=== PATIENT | female | born 1945 | race Caucasian/White ===

== ENCOUNTER → 2016-09-21 | Outpatient (CLI) | payer OTHER ==
[~2016-09-21] MED LIST: ATOR-22 PO; BUSP5TAB59 PO; FURO-85 PO; LORA-741 PO; LSN5 PO; MAGNSUS5 PO; [UNRECOGNIZED DRUG - CODE]; acetaminophen PO; celexa PO; oxybutynin PO
[2016-09-21 09:13] LABS: HEMATOCRIT 40.2 % (37-47); MEAN CELL VOLUME 90.1 fL (80-100); MEAN CORPUSCULAR HEMOGLOBIN 29.4 pg (25-34); MEAN CORPUSCULAR HGB CONC 32.6 g/dl (32-36); MEAN PLATELET VOLUME 12.5 fL (7.4-10.4); PLATELET COUNT 143 K/uL (130-400); RED BLOOD COUNT 4.46 M/uL (4.2-5.4); WHITE BLOOD COUNT 23.92 K/uL (4.8-10.8)
[2016-09-21 09:20] LABS: ALT/SGPT 21 U/L (12-78); BLOOD UREA NITROGEN 22 mg/dl (7-18); BUN/CREATININE RATIO 25.3 (10-20); CALCIUM 8.2 mg/dl (8.5-10.1); CARBON DIOXIDE 25 mmol/L (21-32); CHLORIDE 108 mmol/L (98-107); CHOLESTEROL 138 mg/dl (0-200); CREATININE 0.88 mg/dl (0.60-1.20); GLUCOSE 89 mg/dl (70-99); POTASSIUM 4.4 mmol/L (3.5-5.1); SODIUM 142 mmol/L (136-145)
[2016-09-21 09:30] LABS: ALB/GLOB RATIO 0.9 (0.9-2); ALKALINE PHOSPHATASE 89 U/L (45-117); AST/SGOT 16 U/L (15-37); CHOLESTEROL/HDL RATIO 1.8; HDL CHOLESTEROL 76 mg/dl; LDL CHOLESTEROL CALCULATED 50 mg/dl; TRIGLYCERIDES 61 mg/dl (0-150); VERY LOW DENSITY LIPOPROT CALC 12 mg/dl
[2016-09-21 09:54] LABS: BASO % 0.2 %; BASO ABS # 0.04 K/uL (0-0.2); COMPLETE YES; EOS % 0.8 %; IG% 0.2 %; LYMPH % 80.9 %; LYMPH ABS # 19.34 K/uL (1.2-3.4); MONO % 3.1 %; NEUT % 14.8 %; SMUDGE CELLS PRESENT
== END ==
LOC: C.LABUPBEA 09:05
PROVIDERS: ATTEND Family Medicine
DX: D64.9 Anemia, unspecified (principal); E03.9 Hypothyroidism, unspecified; I10 Essential (primary) hypertension; E78.5 Hyperlipidemia, unspecified

== ENCOUNTER → 2016-12-18 | Outpatient (CLI) | payer OTHER ==
[2016-12-18 10:15] LABS: HEMATOCRIT 44.3 % (37-47); MEAN CELL VOLUME 90.4 fL (80-100); MEAN CORPUSCULAR HEMOGLOBIN 28.2 pg (25-34); MEAN CORPUSCULAR HGB CONC 31.2 g/dl (32-36); MEAN PLATELET VOLUME 12.1 fL (7.4-10.4); PLATELET COUNT 161 K/uL (130-400); WHITE BLOOD COUNT 29.59 K/uL (4.8-10.8)
[2016-12-18 10:26] LABS: ALT/SGPT 25 U/L (12-78); BLOOD UREA NITROGEN 23 mg/dl (7-18); BUN/CREATININE RATIO 26.7 (10-20); CARBON DIOXIDE 26 mmol/L (21-32); CHLORIDE 106 mmol/L (98-107); CREATININE 0.86 mg/dl (0.60-1.20); GLUCOSE 87 mg/dl (70-99); POTASSIUM 4.1 mmol/L (3.5-5.1); SODIUM 142 mmol/L (136-145)
[2016-12-18 10:29] LABS: CALCIUM 9.2 mg/dl (8.5-10.1)
[2016-12-18 10:36] LABS: ALB/GLOB RATIO 1.1 (0.9-2); ALKALINE PHOSPHATASE 118 U/L (45-117); AST/SGOT 16 U/L (15-37)
[2016-12-18 10:49] LABS: ESTIMATED AVERAGE GLUCOSE 128 mg/dl; HA1C FLAG Normal (Normal)
[2016-12-18 11:45] LABS: BASO % 0.2 %; BASO ABS # 0.05 K/uL (0-0.2); COMPLETE YES; EOS % 0.9 %; IG% 0.2 %; LYMPH % 81.9 %; LYMPH ABS # 24.24 K/uL (1.2-3.4); MONO % 2.6 %; NEUT % 14.2 %; SMUDGE CELLS PRESENT
== END ==
LOC: C.LABUPBEA 09:13
PROVIDERS: ATTEND Family Medicine
DX: E11.9 Type 2 diabetes mellitus without complications (principal); R26.9 Unspecified abnormalities of gait and mobility

== ENCOUNTER → 2017-04-25 | Outpatient (CLI) | payer OTHER ==
[2017-04-25 10:09] LABS: ALT/SGPT 22 U/L (12-78); AST/SGOT 13 U/L (15-37); BLOOD UREA NITROGEN 18 mg/dl (7-18); BUN/CREATININE RATIO 21.2 (10-20); CALCIUM 8.7 mg/dl (8.5-10.1); CARBON DIOXIDE 28 mmol/L (21-32); CHLORIDE 108 mmol/L (98-107); CREATININE 0.85 mg/dl (0.60-1.20); GLUCOSE 93 mg/dl (70-99); POTASSIUM 4.3 mmol/L (3.5-5.1); SODIUM 142 mmol/L (136-145)
[2017-04-25 10:16] LABS: ALB/GLOB RATIO 0.9 (0.9-2); ALKALINE PHOSPHATASE 107 U/L (45-117)
[2017-04-25 10:24] LABS: HEMATOCRIT 39.5 % (37-47); MEAN CORPUSCULAR HEMOGLOBIN 28.2 pg (25-34); MEAN CORPUSCULAR HGB CONC 31.6 g/dl (32-36); RED BLOOD COUNT 4.44 M/uL (4.2-5.4); WHITE BLOOD COUNT 28.57 K/uL (4.8-10.8)
[2017-04-25 10:35] LABS: MEAN PLATELET VOLUME 12.6 fL (7.4-10.4); PLATELET COUNT 128 K/uL (130-400)
[2017-04-25 11:38] LABS: BASO % 0.1 %; BASO ABS # 0.04 K/uL (0-0.2); COMPLETE YES; ECHINOCYTES 1+; EOS % 0.7 %; IG% 0.1 %; LYMPH ABS # 23.14 K/uL (1.2-3.4); MONO % 3.4 %; NEUT % 14.7 %; SMUDGE CELLS PRESENT; VACUOLIZATION 1+
== END ==
LOC: C.LABUPBEA 09:29
PROVIDERS: ATTEND Nurse Practitioner Family
DX: I50.32 Chronic diastolic (congestive) heart failure (principal); E78.5 Hyperlipidemia, unspecified; E11.9 Type 2 diabetes mellitus without complications

== ENCOUNTER → 2017-05-27 | Outpatient (CLI) | payer OTHER ==
[2017-05-27 08:58] LABS: ALT/SGPT 21 U/L (12-78); BLOOD UREA NITROGEN 30 mg/dl (7-18); BUN/CREATININE RATIO 27.4 (10-20); CALCIUM 8.5 mg/dl (8.5-10.1); CARBON DIOXIDE 27 mmol/L (21-32); CHLORIDE 107 mmol/L (98-107); GLUCOSE 99 mg/dl (70-99); POTASSIUM 4.3 mmol/L (3.5-5.1); SODIUM 141 mmol/L (136-145)
[2017-05-27 09:09] LABS: ALKALINE PHOSPHATASE 108 U/L (45-117); AST/SGOT 16 U/L (15-37)
== END ==
LOC: C.LABUPBEA 08:00
PROVIDERS: ATTEND Nurse Practitioner Family
DX: E11.9 Type 2 diabetes mellitus without complications (principal); I50.32 Chronic diastolic (congestive) heart failure; R26.2 Difficulty in walking, not elsewhere classified

== ENCOUNTER → 2017-06-03 | Outpatient (CLI) | payer OTHER ==
[2017-06-03 08:26] LABS: BLOOD UREA NITROGEN 27 mg/dl (7-18); BUN/CREATININE RATIO 24.5 (10-20); CALCIUM 8.9 mg/dl (8.5-10.1); CARBON DIOXIDE 27 mmol/L (21-32); CHLORIDE 105 mmol/L (98-107); GLUCOSE 104 mg/dl (70-99); POTASSIUM 4.6 mmol/L (3.5-5.1); SODIUM 140 mmol/L (136-145)
== END ==
LOC: C.LABUPBEA 07:56
PROVIDERS: ATTEND Nurse Practitioner Family
DX: Z01.89 Encounter for other specified special examinations (principal)

== ENCOUNTER → 2017-07-03 | Outpatient (CLI) | payer OTHER ==
--- NOTE | 2017-07-03 15:27 | MAMMOGRAPHY REPORT ---
BILATERAL FIRST EVER DIGITAL SCREENING MAMMOGRAM WITH CAD: 07/03/2017 CLINICAL HISTORY: Routine screening. Baseline exam. TECHNIQUE: Bilateral CC and MLO views were obtained. Current study was also evaluated with a Comput er Aided Detection (CAD) system. COMPARISON: No prior exams were available for comparison. BREAST COMPOSITION: There are scattered areas of fibroglandular density in both breasts. FINDINGS: There is an incompletely imaged dense, partially circumscribed 2.6 cm mass projecting over the superior right pectoralis muscle on the MLO view, which could possibly represent an enlarged lym ph node. Additional targeted ultrasound of the right axilla is recommended for further characterizat ion. There are multiple bilateral circumscribed subcentimeter masses scattered in the breasts, which is a typically benign mammographic pattern. No other suspicious mass, architectural distortion or cluster of microcalcifications is seen bilaterally in the breasts. IMPRESSION: ACR BI-RADS CATEGORY 0: INCOMPLETE EVALUATION: NEED ADDITIONAL IMAGING EVALUATION The incompletely visualized partially circumscribed 2.6 cm mass in the right axillary region needs ad ditional evaluation. The patient will be called to schedule an appointment. Approximately 10% of breast cancers are not detected with mammography. A negative mammographic report should not delay biopsy if a clinically suggestive mass is present. Kaylen Kumar M.D. ay/:07/03/2017 14:55:23 Experimental Electronics Developer: Kelly BISWAS)(M), [facility] letter sent: Addl Imaging 0 BI-RADS Code: ACR BI-RADS Category 0: Incomplete Evaluation: Need Additional Imaging Evaluation
== END | disposition home or self-care (01) ==
LOC: C.MAMM 14:17
PROVIDERS: ATTEND Family Medicine
DX: Z12.31 Encounter for screening mammogram for malignant neoplasm of breast (principal); N63.31 Unspecified lump in axillary tail of the right breast

== ENCOUNTER → 2017-07-22 | Outpatient (CLI) | payer OTHER ==
--- NOTE | 2017-07-22 15:18 | MAMMOGRAPHY REPORT ---
ULTRASOUND OF RIGHT BREAST: 07/22/2017 CLINICAL HISTORY: 72-year-old woman called back from screening mammography for an incompletely visual ized partially circumscribed dense mass in the right axilla identified on the right MLO view. Review of the patient's records makes no mention of leukemia, lymphoma or autoimmune disorders. COMPARISON: Comparison is made to exam dated: 07/03/2017 mammogram - [facility]. FINDINGS: Targeted ultrasound was performed in the right axilla to assess for the incompletely visua lized mammographic mass, possibly representing lymphadenopathy. Numerous enlarged lymph nodes with t hickened and slightly heterogeneous cortices are identified, mostly within the middle and inferior ri ght axillary region. The largest lymph node measures 3.5 cm in length with cortical thickness measur ing up to 6.6 mm. For comparison purposes, the left axilla was also evaluated with ultrasound, and s imilar appearing enlarged lymph nodes within cortices are also seen in the left axilla. Differential considerations include infectious, inflammatory and neoplastic processes and definitive characteriza tion with ultrasound guided fine needle aspiration in the Radiology Department with pathologic assist ance is recommended. IMPRESSION: ACR BI-RADS CATEGORY 4: SUSPICIOUS - FOLLOW-UP RECOMMENDED Ultrasound-guided fine-needle aspiration in the Radiology Department with pathologic assistance is re commended for bilateral axillary lymphadenopathy. These results and recommendations were discussed with the patient and her aid at the time of the exam . Kaylen Kumar M.D. ay/:07/22/2017 14:42:28 Route Supervisor: Gila BISWAS)(Alok), [facility] letter sent: Abnormal 4/5 BI-RADS Code: ACR BI-RADS Category 4: Suspicious
== END | disposition home or self-care (01) ==
LOC: C.MAMM 13:55
PROVIDERS: ATTEND Family Medicine
DX: R92.8 Other abnormal and inconclusive findings on diagnostic imaging of breast (principal); N63.10 Unspecified lump in the right breast, unspecified quadrant; N64.89 Other specified disorders of breast

== ENCOUNTER → 2017-09-10 | Outpatient (CLI) | payer OTHER | LOC: C.LABUPBEA 08:54 | PROVIDERS: ATTEND Nurse Practitioner Family | DX: R26.2 Difficulty in walking, not elsewhere classified (principal) ==

== ENCOUNTER → 2017-10-18 | Outpatient (CLI) | payer OTHER ==
[2017-10-18 08:30] LABS: HEMATOCRIT 38.3 % (37-47); MEAN CELL VOLUME 89.5 fL (80-100); MEAN CORPUSCULAR HGB CONC 31.3 g/dl (32-36); MEAN PLATELET VOLUME 12.7 fL (7.4-10.4); PLATELET COUNT 144 K/uL (130-400); RED CELL DISTRIBUTION WIDTH CV 14.9 % (11.5-14.5); RED CELL DISTRIBUTION WIDTH SD 48.3 fL (36.4-46.3); WHITE BLOOD COUNT 25.09 K/uL (4.8-10.8)
[2017-10-18 08:38] LABS: ALBUMIN 3.1 gm/dl (3.4-5.0); ALT/SGPT 20 U/L (12-78); BLOOD UREA NITROGEN 28 mg/dl (7-18); CALCIUM 8.6 mg/dl (8.5-10.1); CARBON DIOXIDE 26 mmol/L (21-32); CREATININE 1.16 mg/dl (0.60-1.20); GLUCOSE 106 mg/dl (70-99); POTASSIUM 4.1 mmol/L (3.5-5.1); SODIUM 140 mmol/L (136-145)
[2017-10-18 08:41] LABS: ALKALINE PHOSPHATASE 98 U/L (45-117); AST/SGOT 13 U/L (15-37); TOTAL PROTEIN 6.3 gm/dl (6.4-8.2)
[2017-10-18 09:34] LABS: BASO % 0.2 %; BASO ABS # 0.05 K/uL (0-0.2); EOS % 0.8 %; EOS ABS # 0.19 K/uL (0-0.5); IG# 0.04 K/uL (0.00-0.02); LYMPH % 81.1 %; LYMPH ABS # 20.36 K/uL (1.2-3.4); MONO % 2.9 %; MONO ABS # 0.74 K/uL (0.11-0.59); NEUT % 14.8 %; NEUT ABS # 3.71 K/uL (1.4-6.5)
== END ==
LOC: C.LABUPBEA 07:51
PROVIDERS: ATTEND Nurse Practitioner Family
DX: I50.32 Chronic diastolic (congestive) heart failure (principal); E78.5 Hyperlipidemia, unspecified

== ENCOUNTER 2017-12-25 16:14 | Emergency (ER) | payer OTHER ==
[~2017-12-25] VITALS: Ht 162.6 cm; Wt 116.0 kg
[2017-12-25 16:22] VITALS: Ht 162.6 cm; Wt 116.0 kg
--- NOTE | 2017-12-25 16:29 | EMERGENCY ROOM VISIT NOTE ---
History Report prepared by Maribel: Fransisco Monteiro Under the Supervision of: Dr. Bethany Dill M.D. First contact with patient: 16:16 Chief Complaint: PSYCHIATRIC PROBLEMS Stated Complaint: MHID History of Present Illness The patient is a 72 year old female who presents to the Emergency Room via EMS from [facility] with a worsening need for a mental health evaluation today. Per the nursing staff, the patient was at a group therapy session today at the long-term, and the patient verbally stated that she would stab herself. The staff at the long-term were concerned because she is able to walk and knows where the knives are kept. She was then sent here for mental health evaluation. The patient states that she is not taken care of at [facility], and is upset that her son placed her there 4 to 5 years ago. She notes that she has to wait until "second" shift until she can eat, even if she is hungry. The patient admits to thoughts of hurting herself. She adds that she "hears things" early in the mornings, but she believes it is her roommate's TV. She denies any visual hallucinations. She states that her is at [facility] but they do not share a room. The patient denies any pains, vomiting, diarrhea, chest pain, shortness of breath, or headaches. She says that she is diabetic. She notes no history of heart attacks or strokes. The patient says that she has no homicidal ideations, and states that she has never tried to hurt herself in the past. Source of History: patient, nursing staff Onset: Today Position: other (global) Symptom Intensity: admits to suicidal thoughts Quality: other (need for mental health evaluation) Timing: worsening (need) Associated Symptoms: No headache, No chest pain, No SOB, No diarrhea Note: Associated symptoms: Some visual hallucinations. Denies any pains. Review of Systems See HPI for pertinent positives & negatives. A total of 10 systems reviewed and were otherwise negative. Past Medical & Surgical Medical Problems: (1) Diabetes (2) Seizure disorder Family History Patient reports no known family medical history. Social History Smoking Status: Never Smoker Alcohol Use: none Drug Use: none Housing Status: long-term Occupation Status: retired Current/Historical Medications Scheduled Atorvastatin (Lipitor), 1 TAB PO DAILY Cholecalciferol (Vitamin D3), 4,000 UNITS PO DAILY Diclofenac Sodium (Topical) (Voltaren 1% Top Gel), 1 GM TOP BID Donepezil Hydrochloride (Donepezil Hcl), 10 MG PO DAILY Furosemide (Lasix), 40 MG PO DAILY Lisinopril (Zestril), 5 MG PO DAILY Memantine (Namenda), 10 MG PO BID Oxybutynin Chloride (Oxybutynin Chloride Er), 5 MG PO DAILY Allergies Coded Allergies: Spinach (Unverified Allergy, Unknown, diarrhea, 12/25/17) Physical Exam Vital Signs Date Time Temp Pulse Resp B/P (MAP) Pulse Ox O2 Delivery O2 Flow Rate FiO2 12/25/17 21:17 75 16 115/76 98 12/25/17 19:56 70 16 135/76 98 Room Air 12/25/17 18:14 61 98 12/25/17 18:01 62 16 Room Air 150/61 12/25/17 17:14 100 12/25/17 17:04 58 12/25/17 17:04 36.8 60 18 160/58 97 Room Air 12/25/17 17:02 160/58 12/25/17 16:22 36.7 61 16 187/58 98 Room Air Physical Exam Vital signs reviewed. General: Obese, generally well-appearing 72 year old female, in no significant distress. HEENT: No scleral icterus, PERRLA, neck supple. Atraumatic. Cardiovascular: Regular rate and rhythm, no extra sounds. Pulmonary: Clear to auscultation bilaterally, normal work of breathing. Abdomen: Soft, nontender, nondistended, positive bowel sounds. Musculoskeletal: Atraumatic, no peripheral edema. Neurologic: Patient awake alert and oriented Skin: Warm, dry, no rash Psych: + SI but states she "wouldn't do it." She believes her needs her. No homicidal ideation. Medical Decision & Procedures Laboratory Results 12/25/17 16:47 Red Blood Count 4.87, Mean Corpuscular Volume 88.1, Mean Corpuscular Hemoglobin 27.9, Mean Corpuscular Hemoglobin Concent 31.7, Mean Platelet Volume 12.2, Neutrophils (%) (Auto) 11.4, Lymphocytes (%) (Auto) 85.6, Monocytes (%) (Auto) 2.1, Eosinophils (%) (Auto) 0.5, Basophils (%) (Auto) 0.2, Neutrophils # (Auto) 5.06, Lymphocytes # (Auto) 37.62, Monocytes # (Auto) 0.92, Eosinophils # (Auto) 0.20, Basophils # (Auto) 0.07 12/25/17 16:47 Test 12/25/17 16:47 12/25/17 18:30 White Blood Count 43.97 K/uL (4.8-10.8) Red Blood Count 4.87 M/uL (4.2-5.4) Hemoglobin 13.6 g/dL (12.0-16.0) Hematocrit 42.9 % (37-47) Mean Corpuscular Volume 88.1 fL (80-100) Mean Corpuscular Hemoglobin 27.9 pg (25-34) Mean Corpuscular Hemoglobin Concent 31.7 g/dl (32-36) Platelet Count 147 K/uL (130-400) Mean Platelet Volume 12.2 fL (7.4-10.4) Neutrophils (%) (Auto) 11.4 % Lymphocytes (%) (Auto) 85.6 % Monocytes (%) (Auto) 2.1 % Eosinophils (%) (Auto) 0.5 % Basophils (%) (Auto) 0.2 % Neutrophils # (Auto) 5.06 K/uL (1.4-6.5) Lymphocytes # (Auto) 37.62 K/uL (1.2-3.4) Monocytes # (Auto) 0.92 K/uL (0.11-0.59) Eosinophils # (Auto) 0.20 K/uL (0-0.5) Basophils # (Auto) 0.07 K/uL (0-0.2) RDW Standard Deviation 49.0 fL (36.4-46.3) RDW Coefficient of Variation 15.3 % (11.5-14.5) Immature Granulocyte % (Auto) 0.2 % Immature Granulocyte # (Auto) 0.10 K/uL (0.00-0.02) Smudge Cells PRESENT Anion Gap 5.0 mmol/L (3-11) Est Creatinine Clear Calc Drug Dose 47.8 ml/min Estimated GFR () 45.7 Estimated GFR (Non- 39.4 BUN/Creatinine Ratio 17.9 (10-20) Calcium Level 8.6 mg/dl (8.5-10.1) Magnesium Level 2.3 mg/dl (1.8-2.4) Total Bilirubin 0.3 mg/dl (0.2-1) Direct Bilirubin < 0.1 mg/dl (0-0.2) Aspartate Amino Transf (AST/SGOT) 18 U/L (15-37) Alanine Aminotransferase (ALT/SGPT) 25 U/L (12-78) Alkaline Phosphatase 132 U/L (45-117) Total Protein 7.4 gm/dl (6.4-8.2) Albumin 3.5 gm/dl (3.4-5.0) Thyroid Stimulating Hormone (TSH) 1.640 uIu/ml (0.300-4.500) Salicylates Level < 1.7 mg/dl (2.8-20) Acetaminophen Level < 2 ug/ml (10-30) Ethyl Alcohol mg/dL < 3.0 mg/dl (0-3) Urine Color YELLOW Urine Appearance CLEAR (CLEAR) Urine pH 7.5 (4.5-7.5) Urine Specific [place] 1.015 (1.000-1.030) Urine Protein NEG (NEG) Urine Glucose (UA) NEG (NEG) Urine Ketones NEG (NEG) Urine Occult Blood NEG (NEG) Urine Nitrite NEG (NEG) Urine Bilirubin NEG (NEG) Urine Urobilinogen NEG (NEG) Urine Leukocyte Esterase SMALL (NEG) Urine WBC (Auto) 10-30 /hpf (0-5) Urine RBC (Auto) 0-4 /hpf (0-4) Urine Hyaline Casts (Auto) 1-5 /lpf (0-5) Urine Epithelial Cells (Auto) >30 /lpf (0-5) Urine Bacteria (Auto) 2+ (NEG) Urine Renal Epithelial Cells 5-10 /lpf (0-5) Urine Opiates Screen NEG (NEG) Urine Methadone, Qualitative NEG (NEG) Urine Barbiturates NEG (NEG) Urine Phencyclidine (PCP) Level NEG (NEG) Ur Amphetamine/Methamphetamine NEG (NEG) MDMA (Ecstasy) Screen NEG (NEG) Urine Benzodiazepines Screen NEG (NEG) Urine Cocaine Metabolite NEG (NEG) Urine Marijuana (THC) NEG (NEG) Date/Time Source Procedure Growth Status 12/25/17 18:30 Urine,Catheterized Urine Culture - Final Escherichia Coli Complete Laboratory results per my review. ECG Per My Interpretation Indication: altered mental status Rate (beats per minute): 56 Rhythm: sinus bradycardia Findings: no acute ischemic change, no ectopy, other (QTC is 434) ED Course 1619: Past medical records reviewed. The patient was evaluated in room A6. A complete history and physical examination was performed. 2009: Upon reevaluation, the patient appeared to have improvement of her symptoms. I discussed findings with her. She verbalized agreement of the treatment plan. She was discharged back to her long-term. Medical Decision Differential diagnosis: Etiologies such as mood disorder, infection, hypoglycemia, electrolyte abnormalities, cardiac sources, intracerebral event, toxicologic, neurologic, as well as others were entertained. This patient was evaluated and appeared to be in no significant distress. The patient was medically evaluated and found to have a marked leukocytosis. In review of old records, the patient has a history of CLL. She is not anemic or thrombocytopenic however her WBC is rising. I do not think this is related to today's visit however she should likely be seen by her oncologist in the near future. The patient was medically cleared and evaluated by the psychiatric case preparer and liner. Patient admits to thoughts of self-harm however she has no intention. She states she needs to be available for her that she sees him about 4-5 hours a day. She has spoken with the construction area manager at the long-term about her issues with staff changes and her needs. The nursing staff was contacted at [facility]. They state she has recently been tapered off of her Celexa. Her agitation and frustration seems to have increased since that time. She will be discharged back to the nursing facility with recommendations to revisit SSRI therapy. Patient should also likely have a psychiatric evaluation or therapy appointment. She will return to the emergency department for worsening of symptoms or any medical concerns. Medication Reconcilliation Current Medication List: was personally reviewed by me Blood Pressure Screening Patient's blood pressure: Elevated blood pressure Blood pressure disposition: Elevated BP felt to be situational Impression Primary Impression: Suicidal thoughts Additional Impression: CLL (chronic lymphocytic leukemia) Scribe Attestation The scribe's documentation has been prepared under my direction and personally reviewed by me in its entirety. I confirm that the note above accurately reflects all work, treatment, procedures, and medical decision making performed by me. Departure Information Dispostion Home / Self-Care Referrals Marissa Chavira (PCP) Patient Instructions My [facility] Additional Instructions Diagnosis: Suicidal thoughts, CLL Please follow-up with your oncologist regarding her rising WBC count. Speak with your physician regarding antidepressant/antianxiety medications. Consider psychiatric evaluation or a counselor. Please return to the emergency department for worsening of symptoms or any medical concerns. Problem Qualifiers
[2017-12-25 17:04] VITALS: TEMP 36.8
[2017-12-25 17:08] LABS: HEMATOCRIT 42.9 % (37-47); HEMOGLOBIN 13.6 g/dL (12.0-16.0); MEAN CELL VOLUME 88.1 fL (80-100); MEAN CORPUSCULAR HEMOGLOBIN 27.9 pg (25-34); MEAN CORPUSCULAR HGB CONC 31.7 g/dl (32-36); MEAN PLATELET VOLUME 12.2 fL (7.4-10.4); PLATELET COUNT 147 K/uL (130-400); RED CELL DISTRIBUTION WIDTH CV 15.3 % (11.5-14.5); WHITE BLOOD COUNT 43.97 K/uL (4.8-10.8)
[2017-12-25 17:15] LABS: ALBUMIN 3.5 gm/dl (3.4-5.0); ALT/SGPT 25 U/L (12-78); AST/SGOT 18 U/L (15-37); BLOOD UREA NITROGEN 24 mg/dl (7-18); CALCIUM 8.6 mg/dl (8.5-10.1); CARBON DIOXIDE 29 mmol/L (21-32); CREATININE 1.35 mg/dl (0.60-1.20); GLUCOSE 86 mg/dl (70-99); POTASSIUM 4.3 mmol/L (3.5-5.1); SODIUM 139 mmol/L (136-145)
[2017-12-25 17:26] LABS: ALKALINE PHOSPHATASE 132 U/L (45-117); TOTAL PROTEIN 7.4 gm/dl (6.4-8.2)
[2017-12-25 17:48] LABS: BASO % 0.2 %; BASO ABS # 0.07 K/uL (0-0.2); EOS % 0.5 %; LYMPH % 85.6 %; LYMPH ABS # 37.62 K/uL (1.2-3.4); MONO % 2.1 %; MONO ABS # 0.92 K/uL (0.11-0.59); NEUT % 11.4 %; NEUT ABS # 5.06 K/uL (1.4-6.5)
[2017-12-25] MEDS ORDERED: DONE1TAB26 PO (18:17)
[2017-12-25] MEDS ORDERED: NMN10 PO (18:18)
[2017-12-25] MEDS ORDERED: CHOL20005 PO (18:18)
[2017-12-25] MEDS ORDERED: FRS/40 PO (18:18)
[2017-12-25] MEDS ORDERED: DICL1GEL12 TOP (18:18)
[2017-12-25] MEDS ORDERED: OXYB5TAB PO (18:18)
[2017-12-25] MEDS ORDERED: LISI-729 PO (18:18)
[2017-12-25 21:17] VITALS: BP 115/76; PULSE 75; O2SAT 98
--- NOTE | 2017-12-27 18:24 | Pharmacy Progress Note ---
ED Pharmacist Culture FollowUp Date of Service: December 27, 2017. Patient's urine culture growing [place]wood-sensitive E. coli. Discussed with Dr. Dill, who prescribed keflex 500 mg BID x 5 days. Called [facility] and gave order to RN, faxed order to [phone] per request. Fax confirmation successful [phone].
== END 2017-12-25 21:19 | disposition home or self-care (01) ==
LOC: EDBD 16:14 → C.EDA 16:15
DX: R45.851 Suicidal ideations (principal); C91.10 Chronic lymphocytic leukemia of B-cell type not having achieved remission; E66.9 Obesity, unspecified; Z86.39 Personal history of other endocrine, nutritional and metabolic disease; Z91.018 Allergy to other foods

== ENCOUNTER 2022-11-27 17:19 | Inpatient (IN) ==
[2022-11-27] MEDS ORDERED: dilTIAZem HCl 5 MG/ML 5 ML VIAL IV STA (17:42)
[2022-11-27] MEDS ORDERED: STAT IV Infusion **Titration per Protocol STA (17:42)
[2022-11-27] MEDS ORDERED: SODIUM CHLORIDE 0.9% 1000ML 1,000 ML IV ONE (17:42)
[2022-11-27] MEDS ORDERED: dilTIAZem HCl 5 MG/ML 5 ML VIAL IV ONE (17:42)
[2022-11-27] MEDS: dilTIAZem HCL 125 MG in DEXTROSE 5% 100 ML IV SCH (18:03)
[2022-11-27 18:49] LABS: Anion Gap 7 (3-11); BUN Creatinine Ratio 16.6 (10-20); Blood Urea Nitrogen 31 mg/dl (6-23); Calcium 9.1 mg/dl (8.6-10.3); Carbon Dioxide 25 mmol/L (21-32); Chloride 107 mmol/L (98-107); Est GFR (African American) 29.7 ml/min; Est GFR (Non-African American) 25.7 ml/min; Glucose 111 mg/dl (70-99(Fasting)); Lipase 3 U/L (11-82); Potassium 5.1 mmol/L (3.5-5.1); Sodium 139 mmol/L (136-145)
[2022-11-27 18:56] LABS: Troponin I High Sensitivity 21.9 pg/ml (0-14)
[2022-11-27 19:06] LABS: Hematocrit (blood only) 34.5 % (37.0-47.0); Hemoglobin 10.3 g/dl (12.0-16.0); Mean Corpuscular Hemoglobin 28.5 pg (25.0-34.0); Mean Corpuscular Hgb Conc 29.9 g/dL (32.0-36.0); Mean Corpuscular Volume 95.6 fL (80.0-100.0); Mean Platelet Volume 12.9 fL (9.4-12.4); Platelet Count 75 K/uL (130-400); RDW Standard Deviation 63.6 fL (36.4-46.3); Red Blood Count 3.61 M/uL (4.20-5.40); White Blood Count 143.32 K/ul (4.8-10.8)
[2022-11-27 19:08] LABS: INR 1.2 (0.9-1.1); Partial Thromboplastin Time 28.4 Seconds (21.0-31.0); Prothrombin Time 12.6 Seconds (9.0-12.0)
--- NOTE | 2022-11-27 19:40 | CT Scan Report ---
CT head/brain wo con CLINICAL HISTORY: 77 years-old Female with fall. Acute head and neck trauma status post fall TECHNIQUE: Multiple axial CT images of the head were obtained without contrast. A dose lowering tech nique was utilized adhering to the principles of ALARA. COMPARISON: CT cervical spine of same day, head CT 11/30/2015 FINDINGS: Motion degraded exam. Involutional changes with chronic microvascular ischemic disease. No acute intr acranial hemorrhage, midline shift, intracranial mass, hydrocephalus, territorial ischemia or abnorma l extra-axial collection. The calvarium is intact. 1.2 cm calcified subcutaneous lesion of the right occipital scalp, likely be nign The paranasal sinuses, mastoid air cells, and middle ear cavities are clear. IMPRESSION: No acute intracranial abnormality or calvarial fracture. ACT 112: Negative or not required by law. The above report was generated using voice recognition software. It may contain grammatical, syntax o r spelling errors. Electronically signed by: Shahram Salinas M.D. 11/27/2022 7:37 PM
--- NOTE | 2022-11-27 19:44 | CT Scan Report ---
CT cervical spine wo con CT DOSE: 1644.28 mGy.cm CLINICAL HISTORY: 77 years-old Female with fall. Acute head and neck injury status post fall COMPARISON: Head CT of same day, head CT 11/30/2015 TECHNIQUE: Multiple axial CT images of the cervical spine were obtained without contrast. A dose low ering technique was utilized adhering to the principles of ALARA. FINDINGS: Multilevel degenerative changes of the cervical spine. The study is mildly motion degraded. Levoscoliosis of the cervical spine. No definite acute cervical spine fracture or subluxation identi fied. Small left mastoid effusion. The cervical soft tissues appear unremarkable. Layering pleural effusions with pulmonary edema. No pneumothorax. Calcified plaque of the carotid bulbs. No prevertebral edema. IMPRESSION: 1. No acute cervical spine fracture or subluxation identified. 2. Layering pleural effusions with pulmonary edema. ACT 112: Negative or not required by law. The above report was generated using voice recognition software. It may contain grammatical, syntax o r spelling errors. Electronically signed by: Shahram Salinas M.D. 11/27/2022 7:42 PM
[2022-11-27 19:49] LABS: Basophils # (auto) 0.04 K/uL (0-0.2); Immature Granulocytes # (auto) 0.35 K/uL (0.01-0.20); Immature Granulocytes % (auto) 0.2 %; Lymphocytes # (auto) 133.56 K/uL (1.2-3.4); Lymphocytes % (auto) 93.2 %; Monocytes % (auto) 0.9 %; Neutrophils # (auto) 8.07 K/uL (1.40-6.50); Neutrophils % (auto) 5.7 %
[2022-11-27] MEDS ORDERED: MoRPHine SULFATE 2 MG/ML CARP IV PRN (20:05)
[2022-11-27] MEDS ORDERED: MoRPHine SULFATE 4 MG/ML 1 ML CARP\\VIAL IV PRN (20:05)
[2022-11-27] MEDS ORDERED: FUROSEMIDE 40 MG/4 ML VIAL IV ONE (20:05)
--- NOTE | 2022-11-27 20:43 | XRay Report ---
XR chest 1V portable HISTORY: 77 years-old Female Chest pain, nonspecific COMPARISON: Chest CT 10/15/2022 TECHNIQUE: AP view of the chest FINDINGS: Cardiac silhouette is enlarged. Pulmonary vascular congestion with interstitial coarsening. No pneumo thorax. Trace pleural effusions are suggested. Mild right hemidiaphragmatic elevation. Degenerative c hanges of the shoulders and spine. IMPRESSION: 1. Cardiomegaly with pulmonary vascular congestion and interstitial coarsening suggestive of pulmonar y edema. 2. Trace pleural effusions. ACT 112: Negative or not required by law. The above report was generated using voice recognition software. It may contain grammatical, syntax o r spelling errors. Electronically signed by: Shahram Salinas M.D. 11/27/2022 8:42 PM
--- NOTE | 2022-11-27 20:44 | XRay Report ---
XR pelvis 1-2V routine HISTORY: 77 years-old Female fall acute pelvic pain status post fall COMPARISON: CT abdomen pelvis 10/15/2022 TECHNIQUE: AP view of the pelvis FINDINGS: Demineralized appearance of the bones. Mild osteoarthritis of the hips. No acute fracture, dislocatio n or avascular necrosis. IMPRESSION: No acute fracture or dislocation identified. ACT 112: Negative or not required by law. The above report was generated using voice recognition software. It may contain grammatical, syntax o r spelling errors. Electronically signed by: Shahram Salinas M.D. 11/27/2022 8:43 PM
--- NOTE | 2022-11-27 20:46 | XRay Report ---
XR lumbar spine min 4V routine HISTORY: 77 years-old Female fall acute pain of the low back status post fall COMPARISON: CT abdomen pelvis 10/15/2022 TECHNIQUE: 5 views of the lumbar spine FINDINGS: Cholecystectomy. Air-filled loops of large and small bowel likely physiologic. Atherosclerosis of the aorta. Demineralized appearance of the bones. Mild to moderate disc space narrowing and spondylitic spurring with moderate facet arthrosis. No acute fracture, subluxation or endplate erosion identified . IMPRESSION: No acute fracture or subluxation identified. ACT 112: Negative or not required by law. The above report was generated using voice recognition software. It may contain grammatical, syntax o r spelling errors. Electronically signed by: Shahram Salinas M.D. 11/27/2022 8:45 PM
--- NOTE | 2022-11-27 20:54 | XRay Report ---
XR femur LT 2V routine HISTORY: 77 years-old Female fall acute pain of the left femur COMPARISON: Pelvis radiograph of same day TECHNIQUE: 2 views of the left femur FINDINGS: Demineralized appearance of the bones. Large joint effusion of the knee. Severe tricompartmental oste oarthritis of the knee. Acute appearing fibular neck fracture. No acute proximal femoral fracture charlette ntified. IMPRESSION: 1. Limited exam secondary to positioning. 2. Suboptimally visualized acute fracture of the proximal fibula. Correlation with dedicated knee rad iographs recommended. 3. Large left knee joint effusion with severe osteoarthritis. ACT 112: Negative or not required by law. The above report was generated using voice recognition software. It may contain grammatical, syntax o r spelling errors. Electronically signed by: Shahram Salinas M.D. 11/27/2022 8:52 PM
--- NOTE | 2022-11-27 21:50 | History & Physical Report ---
Date of Service November 27, 2022 Assessment & Plan (1) Hyperlipidemia: (2) CLL (chronic lymphocytic leukemia): (3) Bladder spasms: (4) Hypothyroidism: (5) Depression: (6) Hip fracture: (7) Atrial fibrillation with RVR: (8) Hypertension: (9) Diabetes: (10) Seizure disorder: (11) CHF (congestive heart failure): Plan Closed left hip fracture- NPO except essential medications Orthopedic surgery has already been consulted by the ED Acetaminophen 1 g IV every 8 hours as needed for mild pain or fever Dilaudid 0.25 mg IV every 3 hours as needed moderate pain Dilaudid 0.5 mg IV every 3 hours as needed severe pain Zofran 4 mg IV every 6 hours as needed Placed on DVT prophylaxis with heparin subcu Atrial fibrillation with RVR/hypertension/CHF- Hold lisinopril Continue diltiazem drip begun by the ED Furosemide 40 mg IV, follow response Order echocardiogram Consult cardiology Dr. Lopez Heparin subcu for DVT prophylaxis, if delayed place on heparin drip Seizure disorder- Continue divalproex 500 mg p.o. twice daily Hyperlipidemia- Atorvastatin on hold Depression- Citalopram on hold Hypothyroidism- Levothyroxine on hold Bladder spasms- Oxybutynin on hold History of Present Illness Chief Complaint: The patient has a history of significant dementia, which prohibits her from contributing significantly to her HPI or review of systems Primary Care Provider: [facility] The patient is a 77-year-old female resident of [facility], who had a fall earlier in the day, and had reported left leg pain. Work-up in the emergency department included a CT scan of the cervical spine which showed no significant neck injury, but did show mild pulmonary edema and layering pleural effusion. CT scan of the head which was negative. The patient was found to be in atrial fibrillation with RVR, and was placed on diltiazem drip by the ED. Allergies Allergy/AdvReac Type Severity Reaction Status Date / Time spinach Allergy Unknown diarrhea Unverified 11/27/22 17:56 lactose AdvReac lactose Verified 11/27/22 17:56 intolerance Home Medications Medication Instructions Recorded Confirmed Type Bengay Lidocaine Cream 4% 1 applic topical QS 11/27/22 11/27/22 History acetaminophen 325 mg tablet 650 mg PO Q6 PRN Fever Or Pain 11/27/22 11/27/22 History atorvastatin 20 mg tablet 20 mg PO DAILY 11/27/22 11/27/22 History cholecalciferol (vitamin D3) 50 100 mcg PO DAILY 11/27/22 11/27/22 History mcg (2,000 unit) tablet (Vitamin D3) citalopram 10 mg tablet 10 mg PO DAILY 11/27/22 11/27/22 History divalproex 250 mg tablet,delayed 500 mg PO BID 11/27/22 11/27/22 History release lactase 3,000 unit tablet (Lactaid) 3,000 unit PO WM 11/27/22 11/27/22 History levothyroxine 25 mcg tablet 25 mcg PO QAM 11/27/22 11/27/22 History lisinopril 5 mg tablet 5 mg PO DAILY 11/27/22 11/27/22 History oxybutynin chloride 5 mg 5 mg PO DAILY 11/27/22 11/27/22 History tablet,extended release 24 hr Past Med/Surg History Medical History (Updated 11/28/22 @ 03:17 by Jose Alfredo Garcia MD) Bladder spasms CHF (congestive heart failure) CLL (chronic lymphocytic leukemia) Depression Diabetes Hyperlipidemia Hypertension Hypothyroidism No pertinent family history Seizure disorder Surgical History (Updated 11/28/22 @ 01:32 by Asaf Ramirez) No pertinent past surgical history Social History Smoking Status: Unknown if ever smoked Hx Substance Use: No (UNKNOWN) Preferred Language: Jamaican Communication Ability: Impaired Communication Ability Comment: pt has dememtia non-verbal mostly Border Inspector Required: No Beliefs That Will Affect Care: None Current Living Situation: Intermediate Feels Safe at Home: Yes Assistive Devices: Other Review of Systems Review of Systems: Review of systems is severely limited due to patient's baseline dementia Physical Exam Physical Exam: The patient is awake, normocephalic and atraumatic, lying in bed and in no acute distress. HEENT--PERRL, EOMI, mucous membranes and oropharynx dry. Neck--supple. No JVD. No bruits. Thyroid normal, trachea midline, no adenopathy. Heart--normal S1 and S2. No murmurs, rubs or gallops. Lungs--clear bilaterally, no respiratory distress, no accessory muscle use. Abdomen--normal bowel sounds and soft. Nontender. Nondistended, no hernias or masses, no organomegaly. Extremities--no cyanosis or clubbing. No edema. Dermatologic--normal skin turgor, normal color, no abnormal lymph nodes, no rash. Neurologic--cranial nerves II through XII grossly intact. Rheumatologic--limited by painful left hip Psychiatric--normal affect. Results & Data Results & Data Vital Signs (Past 12 Hours) Vital Signs Temp Pulse Resp BP Pulse Ox O2 Del Method 11/27/22 21:26 101 H 11/27/22 21:00 107 H 18 96 11/27/22 21:00 134/87 11/27/22 20:45 107 H 18 99 11/27/22 20:31 124/91 11/27/22 20:31 109 H 20 97 11/27/22 20:30 101 H 24 95 11/27/22 20:15 96 H 19 91 11/27/22 20:01 109 H 19 11/27/22 20:01 113/85 11/27/22 20:00 101 H 17 11/27/22 19:45 111 H 15 93 11/27/22 19:43 113 H 15 92 11/27/22 19:43 151/62 H 11/27/22 18:15 94 H 19 96 11/27/22 18:00 125 H 21 11/27/22 18:00 146/101 H 11/27/22 17:45 126 H 22 11/27/22 17:31 122 H 22 92 11/27/22 17:31 136/102 H 11/27/22 18:17 16 95 11/27/22 17:38 133 H 11/27/22 17:28 36.7 C 15 93 Room Air 11/27/22 17:28 36.7 C 114 H 15 143/70 H 94 Room Air Laboratory Results Laboratory Results WBC 143.32 K/ul (4.8-10.8) H* 11/27/22 18:17 RBC 3.61 M/uL (4.20-5.40) L 11/27/22 18:17 Hgb 10.3 g/dl (12.0-16.0) L 11/27/22 18:17 Hct 34.5 % (37.0-47.0) L 11/27/22 18:17 MCV 95.6 fL (80.0-100.0) 11/27/22 18:17 MCH 28.5 pg (25.0-34.0) 11/27/22 18:17 MCHC 29.9 g/dL (32.0-36.0) L 11/27/22 18:17 RDW Std Deviation 63.6 fL (36.4-46.3) H 11/27/22 18:17 RDW Coeff of Flor 20.0 % (11.5-14.5) H 11/27/22 18:17 Plt Count 75 K/uL (130-400) L 11/27/22 18:17 MPV 12.9 fL (9.4-12.4) H 11/27/22 18:17 Immature Gran % (Auto) 0.2 % 11/27/22 18:17 Neut % (Auto) 5.7 % 11/27/22 18:17 Lymph % (Auto) 93.2 % 11/27/22 18:17 [place] % (Auto) 0.9 % 11/27/22 18:17 Eos % (Auto) 0.0 % 11/27/22 18:17 Baso % (Auto) 0.0 % 11/27/22 18:17 Neut # (Auto) 8.07 K/uL (1.40-6.50) H 11/27/22 18:17 Lymph # (Auto) 133.56 K/uL (1.2-3.4) H 11/27/22 18:17 [place] # (Auto) 1.30 K/uL (0.11-0.59) H 11/27/22 18:17 Eos # (Auto) 0.00 K/uL (0-0.50) 11/27/22 18:17 Baso # (Auto) 0.04 K/uL (0-0.2) 11/27/22 18:17 Immature Gran # (Auto) 0.35 K/uL (0.01-0.20) H 11/27/22 18:17 PT 12.6 Seconds (9.0-12.0) H 11/27/22 18:17 INR 1.2 (0.9-1.1) H 11/27/22 18:17 APTT 28.4 Seconds (21.0-31.0) 11/27/22 18:17 PTT Ratio 1.0 11/27/22 18:17 Sodium 139 mmol/L (136-145) 11/27/22 18:17 Potassium 5.1 mmol/L (3.5-5.1) 11/27/22 18:17 Chloride 107 mmol/L (98-107) 11/27/22 18:17 Carbon Dioxide 25 mmol/L (21-32) 11/27/22 18:17 Anion Gap 7 (3-11) 11/27/22 18:17 BUN 31 mg/dl (6-23) H 11/27/22 18:17 Creatinine 1.87 mg/dl (0.6-1.2) H 11/27/22 18:17 Est Cr Clr Drug Dosing Not Reportable 11/27/22 18:17 Est GFR ( Amer) 29.7 ml/min 11/27/22 18:17 Est GFR (Non-Af Amer) 25.7 ml/min 11/27/22 18:17 BUN/Creatinine Ratio 16.6 (10-20) 11/27/22 18:17 Glucose 111 mg/dl (70-99(Fasting)) H 11/27/22 18:17 POC Glucose 116 mg/dl (70-99) H 11/28/22 00:04 Lactate 1.3 mmol/L (0.4-2.0) 11/27/22 19:50 Calcium 9.1 mg/dl (8.6-10.3) 11/27/22 18:17 Troponin I High Sens 27.7 pg/ml (0-14) H 11/28/22 00:37 Lipase 3 U/L (11-82) L 11/27/22 18:17 SARS-CoV-2, RNA, NAAT NEGATIVE (NEGATIVE) 11/27/22 18:[address] 11/27/22 17:37 CT cervical spine wo con CT DOSE: 1644.28 mGy.cm CLINICAL HISTORY: 77 years-old Female with fall. Acute head and neck injury status post fall COMPARISON: Head CT of same day, head CT 11/30/2015 TECHNIQUE: Multiple axial CT images of the cervical spine were obtained without contrast. A dose lowering technique was utilized adhering to the principles of ALARA. FINDINGS: Multilevel degenerative changes of the cervical spine. The study is mildly motion degraded. Levoscoliosis of the cervical spine. No definite acute cervical spine fracture or subluxation identified. Small left mastoid effusion. The cervical soft tissues appear unremarkable. Layering pleural effusions with pulmonary edema. No pneumothorax. Calcified plaque of the carotid bulbs. No prevertebral edema. IMPRESSION: 1. No acute cervical spine fracture or subluxation identified. 2. Layering pleural effusions with pulmonary edema. ACT 112: Negative or not required by law. The above report was generated using voice recognition software. It may contain grammatical, syntax or spelling errors. Electronically signed by: Shahram Salinas M.D. 11/27/2022 7:42 PM Chest X-Ray 11/27/22 17:37 XR chest 1V portable HISTORY: 77 years-old Female Chest pain, nonspecific COMPARISON: Chest CT 10/15/2022 TECHNIQUE: AP view of the chest FINDINGS: Cardiac silhouette is enlarged. Pulmonary vascular congestion with interstitial coarsening. No pneumothorax. Trace pleural effusions are suggested. Mild right hemidiaphragmatic elevation. Degenerative changes of the shoulders and spine. IMPRESSION: 1. Cardiomegaly with pulmonary vascular congestion and interstitial coarsening suggestive of pulmonary edema. 2. Trace pleural effusions. ACT 112: Negative or not required by law. The above report was generated using voice recognition software. It may contain grammatical, syntax or spelling errors. Electronically signed by: Shahram Salinas M.D. 11/27/2022 8:[address] 11/27/22 17:37 CT head/brain wo con CLINICAL HISTORY: 77 years-old Female with fall. Acute head and neck trauma status post fall TECHNIQUE: Multiple axial CT images of the head were obtained without contrast. A dose lowering technique was utilized adhering to the principles of ALARA. COMPARISON: CT cervical spine of same day, head CT 11/30/2015 FINDINGS: Motion degraded exam. Involutional changes with chronic microvascular ischemic disease. No acute intracranial hemorrhage, midline shift, intracranial mass, hydrocephalus, territorial ischemia or abnormal extra-axial collection. The calvarium is intact. 1.2 cm calcified subcutaneous lesion of the right occipital scalp, likely benign The paranasal sinuses, mastoid air cells, and middle ear cavities are clear. IMPRESSION: No acute intracranial abnormality or calvarial fracture. ACT 112: Negative or not required by law. The above report was generated using voice recognition software. It may contain grammatical, syntax or spelling errors. Electronically signed by: Shahram Salinas M.D. 11/27/2022 7:37 PM Lumbar Spine X-Ray 11/27/22 17:38 XR lumbar spine min 4V routine HISTORY: 77 years-old Female fall acute pain of the low back status post fall COMPARISON: CT abdomen pelvis 10/15/2022 TECHNIQUE: 5 views of the lumbar spine FINDINGS: Cholecystectomy. Air-filled loops of large and small bowel likely physiologic. Atherosclerosis of the aorta. Demineralized appearance of the bones. Mild to moderate disc space narrowing and spondylitic spurring with moderate facet arthrosis. No acute fracture, subluxation or endplate erosion identified. IMPRESSION: No acute fracture or subluxation identified. ACT 112: Negative or not required by law. The above report was generated using voice recognition software. It may contain grammatical, syntax or spelling errors. Electronically signed by: Shahram Salinas M.D. 11/27/2022 8:45 PM Pelvis X-Ray 11/27/22 17:38 XR pelvis 1-2V routine HISTORY: 77 years-old Female fall acute pelvic pain status post fall COMPARISON: CT abdomen pelvis 10/15/2022 TECHNIQUE: AP view of the pelvis FINDINGS: Demineralized appearance of the bones. Mild osteoarthritis of the hips. No acute fracture, dislocation or avascular necrosis. IMPRESSION: No acute fracture or dislocation identified. ACT 112: Negative or not required by law. The above report was generated using voice recognition software. It may contain grammatical, syntax or spelling errors. Electronically signed by: Shahram Salinas M.D. 11/27/2022 8:43 PM Femur X-Ray 11/27/22 17:42 XR femur LT 2V routine HISTORY: 77 years-old Female fall acute pain of the left femur COMPARISON: Pelvis radiograph of same day TECHNIQUE: 2 views of the left femur FINDINGS: Demineralized appearance of the bones. Large joint effusion of the knee. Severe tricompartmental osteoarthritis of the knee. Acute appearing fibular neck fracture. No acute proximal femoral fracture identified. IMPRESSION: 1. Limited exam secondary to positioning. 2. Suboptimally visualized acute fracture of the proximal fibula. Correlation with dedicated knee radiographs recommended. 3. Large left knee joint effusion with severe osteoarthritis. ACT 112: Negative or not required by law. The above report was generated using voice recognition software. It may contain grammatical, syntax or spelling errors. Electronically signed by: Shahram Salinas M.D. 11/27/2022 8:52 PM Code Status & VTE Plan Code Status Full code PG Care Time/CCT Total # of Minutes Spent Total Time Spent with Patient: Total time spent is greater than 50% in coordination of care (as documented) at patient's floor/unit and/or counseling patient: Coding Level of Care Code 62765 INT INP/OBS CARE 3/75MIN Diagnoses Hyperlipidemia E78.5 CLL (chronic lymphocytic leukemia) C91.90 Bladder spasms N32.89 Hypothyroidism E03.9 Depression F32.9 Hip fracture S72.009A Encounter type: initial encounter Laterality: left Atrial fibrillation with RVR I48.91 Hypertension I10 Diabetes E11.9 Seizure disorder G40.909 CHF (congestive heart failure) I50.9 (6) Hip fracture Encounter type: initial encounter Laterality: left
[2022-11-27] MEDS ORDERED: bisacodyL 10 MG SUPP PR PRN (22:49)
[2022-11-27] MEDS ORDERED: ACETAMINOPHEN 1000 MG/100 ML IV IV PRN (22:49)
[2022-11-27] MEDS ORDERED: NALOXONE HCL 0.4 MG/1 ML VIAL/CARP IV PRN (22:49)
[2022-11-27] MEDS ORDERED: HYDROmorphone INJ 0.5 MG/0.5 ML SYR IV PRN ×2 (22:49)
[2022-11-27] MEDS ORDERED: MAGNESIUM HYDROXIDE SUSP 30 ML UDC PO PRN (22:49)
[2022-11-27] MEDS ORDERED: ONDANSETRON INJ 2 MG/ML 2 ML VIAL IV PRN (22:49)
[2022-11-27] MEDS ORDERED: Patient's HEIGHT &/or WEIGHT Needed STA (23:07)
[2022-11-28] MEDS: DIVALPROEX EXTENDED RELEASE 500 MG TAB PO SCH ×3 (00:06→20:18)
[2022-11-28] MEDS: SODIUM CHLORIDE 0.9% 1000ML 1,000 ML IV SCH ×2 (00:10→17:49)
--- NOTE | 2022-11-28 01:32 | Emergency Department Note ---
History of Present Illness General Chief complaint: Fall Time Seen by Provider: 11/27/22 17:34 History of Present Illness Provider complaint: Fall 77-year-old female with history of dementia presents emergency department status post fall at the care home. Patient reporting left leg pain. Home Medications Medication Instructions Recorded Confirmed Type Bengay Lidocaine Cream 4% 1 applic topical QS 11/27/22 11/27/22 History acetaminophen 325 mg tablet 650 mg PO Q6 PRN Fever Or Pain 11/27/22 11/27/22 History atorvastatin 20 mg tablet 20 mg PO DAILY 11/27/22 11/27/22 History cholecalciferol (vitamin D3) 50 100 mcg PO DAILY 11/27/22 11/27/22 History mcg (2,000 unit) tablet (Vitamin D3) citalopram 10 mg tablet 10 mg PO DAILY 11/27/22 11/27/22 History divalproex 250 mg tablet,delayed 500 mg PO BID 11/27/22 11/27/22 History release lactase 3,000 unit tablet (Lactaid) 3,000 unit PO WM 11/27/22 11/27/22 History levothyroxine 25 mcg tablet 25 mcg PO QAM 11/27/22 11/27/22 History lisinopril 5 mg tablet 5 mg PO DAILY 11/27/22 11/27/22 History oxybutynin chloride 5 mg 5 mg PO DAILY 11/27/22 11/27/22 History tablet,extended release 24 hr Allergies Allergy/AdvReac Type Severity Reaction Status Date / Time spinach Allergy Unknown diarrhea Unverified 11/27/22 17:56 lactose AdvReac lactose Verified 11/27/22 17:56 intolerance Past Med/Surg History Medical History (Updated 11/28/22 @ 01:45 by Asaf Ramirez) Diabetes No pertinent family history Seizure disorder Surgical History (Updated 11/28/22 @ 01:32 by Asaf Ramirez) No pertinent past surgical history Social History Smoking Status: Unknown if ever smoked Hx Substance Use: No (UNKNOWN) Preferred Language: [place]i Communication Ability: Impaired Communication Ability Comment: pt has dememtia non-verbal mostly Entrance Guard Required: No Beliefs That Will Affect Care: None Current Living Situation: Custodial Other Information That Helps Us Care for You: Yes Feels Safe at Home: Yes Assistive Devices: Other Assistive Devices Comment: THESE ARE UNKNOWN Physical Exam Vital Signs Vital Signs - 24 hr 11/27/22 17:28 11/27/22 17:28 11/27/22 17:38 Temperature 36.7 C 36.7 C Temperature Source Oral Oral Pulse Rate 114 H 133 H Pulse Rate from SpO2 Sensor Respiratory Rate 15 15 Respiratory Effort / Characteristics Non-Labored Spontaneous Respiratory Depth Normal Blood Pressure 143/70 H Blood Pressure Mean 94 Pulse Oximetry 94 93 Oxygen Delivery Method Room Air Room Air Sepsis Recent Fever Within 48 Hours No Sepsis New/Unexplained Change in Mental Status N/A Sepsis Action Taken by Nursing No Action Required 11/27/22 18:17 11/27/22 17:31 11/27/22 17:31 Temperature Temperature Source Pulse Rate 122 H Pulse Rate from SpO2 Sensor 128 H Respiratory Rate 16 22 Respiratory Effort / Characteristics Respiratory Depth Blood Pressure 136/102 H Blood Pressure Mean 113 Pulse Oximetry 95 92 Oxygen Delivery Method Sepsis Recent Fever Within 48 Hours Sepsis New/Unexplained Change in Mental Status Sepsis Action Taken by Nursing 11/27/22 17:45 11/27/22 18:00 11/27/22 18:00 Temperature Temperature Source Pulse Rate 126 H 125 H Pulse Rate from SpO2 Sensor Respiratory Rate 22 21 Respiratory Effort / Characteristics Respiratory Depth Blood Pressure 146/101 H Blood Pressure Mean 116 Pulse Oximetry Oxygen Delivery Method Sepsis Recent Fever Within 48 Hours Sepsis New/Unexplained Change in Mental Status Sepsis Action Taken by Nursing 11/27/22 18:15 11/27/22 19:43 11/27/22 19:43 Temperature Temperature Source Pulse Rate 94 H 113 H Pulse Rate from SpO2 Sensor 99 H 98 H Respiratory Rate 19 15 Respiratory Effort / Characteristics Respiratory Depth Blood Pressure 151/62 H Blood Pressure Mean 91 Pulse Oximetry 96 92 Oxygen Delivery Method Sepsis Recent Fever Within 48 Hours Sepsis New/Unexplained Change in Mental Status Sepsis Action Taken by Nursing 11/27/22 19:45 11/27/22 20:00 11/27/22 20:01 Temperature Temperature Source Pulse Rate 111 H 101 H Pulse Rate from SpO2 Sensor 107 H Respiratory Rate 15 17 Respiratory Effort / Characteristics Respiratory Depth Blood Pressure 113/85 Blood Pressure Mean 94 Pulse Oximetry 93 Oxygen Delivery Method Sepsis Recent Fever Within 48 Hours Sepsis New/Unexplained Change in Mental Status Sepsis Action Taken by Nursing 11/27/22 20:01 11/27/22 20:15 11/27/22 20:30 Temperature Temperature Source Pulse Rate 109 H 96 H 101 H Pulse Rate from SpO2 Sensor 103 H 98 H Respiratory Rate 19 19 24 Respiratory Effort / Characteristics Respiratory Depth Blood Pressure Blood Pressure Mean Pulse Oximetry 91 95 Oxygen Delivery Method Sepsis Recent Fever Within 48 Hours Sepsis New/Unexplained Change in Mental Status Sepsis Action Taken by Nursing 11/27/22 20:31 11/27/22 20:31 11/27/22 20:45 Temperature Temperature Source Pulse Rate 109 H 107 H Pulse Rate from SpO2 Sensor 100 H 110 H Respiratory Rate 20 18 Respiratory Effort / Characteristics Respiratory Depth Blood Pressure 124/91 Blood Pressure Mean 102 Pulse Oximetry 97 99 Oxygen Delivery Method Sepsis Recent Fever Within 48 Hours Sepsis New/Unexplained Change in Mental Status Sepsis Action Taken by Nursing 11/27/22 21:00 11/27/22 21:00 11/27/22 21:26 Temperature Temperature Source Pulse Rate 107 H 101 H Pulse Rate from SpO2 Sensor 88 Respiratory Rate 18 Respiratory Effort / Characteristics Respiratory Depth Blood Pressure 134/87 Blood Pressure Mean 102 Pulse Oximetry 96 Oxygen Delivery Method Sepsis Recent Fever Within 48 Hours Sepsis New/Unexplained Change in Mental Status Sepsis Action Taken by Nursing Physical Exam CV: Tachycardic rate, irregular rhythm, normal heart sounds and intact distal pulses. There is no peripheral edema. Palpable radial pulses bue. PULM/CHEST: Effort normal and breath sounds normal. No respiratory distress. No stridor. She has no wheezes. She has no rales. -Chest Wall: She exhibits no tenderness. ABD: The abdomen is soft. MUSC/SKEL: Pelvis stable. Pain on palpation of the left hip. Left lower extremity is shortened and externally rotated. Course Course 1734: The patient was evaluated in room B11. A complete history and physical exam was performed Cardiac monitoring: An order was placed for continuous cardiac monitoring. The monitor shows a rate of 140 with atrial fibrilation rhythm interpreted by me Patient found to be in A-fib RVR. Cardizem bolus was given and patient be started on Cardizem drip. 2005: Vital signs stable on Cardizem drip. Labs show leukocytosis 143.32. Patient has a history of chronically elevated white blood cell counts. Creatinine is at baseline at 1.87. High-sensitivity troponin is elevated 27.3 but this could be due to the patient's elevated creatinine. X-rays reviewed by me show a left-sided hip fracture as well as a chest x-ray showing cardiomegaly with fluid overload. Lasix ordered for the patient. [facility] on Cardizem drip with consult orthopedics for r outine. Administered Medications Divalproex Sodium (Divalproex Extended Release 500 Mg Tab) 500 mg PO BID GILBERTO Stop: 12/27/22 22:14 Last Admin: 11/28/22 00:06 Dose: Not Given Documented By: MARISABEL Diltiazem HCl 125 mg/ Dextrose 125 mls @ 5 mls/hr IV .Q24H GILBERTO; Protocol Stop: 12/27/22 17:44 Last Admin: 11/27/22 18:03 Dose: 5 mg/hr, 5 mls/hr Documented By: MEHNAZ Co-signed By: CALIN Sodium Chloride (Nss 1000ml) 1,000 mls @ 60 mls/hr IV .[id number] GILBERTO Stop: 12/27/22 22:48 Last Admin: 11/28/22 00:10 Dose: 60 mls/hr Documented By: MARISABEL Discontinued Medications Diltiazem HCl (Diltiazem Hcl 5 Mg/Ml 5 Ml Vial) Confirm Administered Dose 25 mg IV .STK-MED ONE Stop: 11/27/22 17:43 Last Admin: 11/27/22 18:39 Dose: Not Given Documented By: CALIN Diltiazem HCl (Diltiazem Hcl 5 Mg/Ml 5 Ml Vial) 15 mg IV NOW STA Stop: 11/27/22 17:43 Last Admin: 11/27/22 18:01 Dose: 15 mg Documented By: HS Co-signed By: ARACELIS Furosemide (Furosemide 40 Mg/4 Ml Vial) 40 mg IV ONE ONE Stop: 11/27/22 20:06 Last Admin: 11/27/22 20:18 Dose: 40 mg Documented By: SHANNON Sodium Chloride (Nss 1000ml) 1,000 mls @ 999 mls/hr IV .Q1H1M ONE Stop: 11/27/22 18:42 Last Infusion: 11/27/22 19:44 Dose: 0 mls/hr Documented By: Admin: 11/27/22 18:02 Dose: 999 mls/hr Documented By: MEHNAZ Miscellaneous (Stat Iv Infusion Titration Per Protocol) 1 each N/A NOW STA Stop: 11/27/22 17:43 Last Admin: 11/27/22 18:18 Dose: 1 each Documented By: BCN Miscellaneous (Patient's Height &/Or Weight Needed) 1 each N/A NOW STA Stop: 11/27/22 23:08 Last Admin: 11/28/22 00:05 Dose: Not Given Documented By: MARISABEL Morphine Sulfate (Morphine Sulfate 2 Mg/Ml Carp) 2 mg IV Q1H PRN PRN Reason: Moderate Pain (Rating 3,4,5,6) Stop: 12/11/22 20:04 Last Admin: 11/27/22 20:18 Dose: 2 mg Documented By: SHANNON Critical Care Time Critical Care Time: Yes Total Critical Care Time: 43 I have personally spent greater than 43 minutes of critical care time in the direct management of this patient. This includes bedside care, interpretation of diagnostic studies, and testing, discussion with consultants, patient, and family members, and other required patient management activities. This 43 minutes is in excess of all separately billable procedures. Medical Decision Making Laboratory Data Attestation: I reviewed the patient's lab results. 11/27/22 18:17 11/27/22 18:17 Lab Results 11/27/22 11/27/22 11/27/22 Range/Units 18:07 18:17 18:17 WBC 143.32 H* (4.8-10.8) K/ul RBC 3.61 L (4.20-5.40) M/uL Hgb 10.3 L (12.0-16.0) g/dl Hct 34.5 L (37.0-47.0) % MCV 95.6 (80.0-100.0) fL MCH 28.5 (25.0-34.0) pg MCHC 29.9 L (32.0-36.0) g/dL RDW Std Deviation 63.6 H (36.4-46.3) fL RDW Coeff of Flor 20.0 H (11.5-14.5) % Plt Count 75 L (130-400) K/uL MPV 12.9 H (9.4-12.4) fL Immature Gran % (Auto) 0.2 % Neut % (Auto) 5.7 % Lymph % (Auto) 93.2 % [place] % (Auto) 0.9 % Eos % (Auto) 0.0 % Baso % (Auto) 0.0 % Neut # (Auto) 8.07 H (1.40-6.50) K/uL Lymph # (Auto) 133.56 H (1.2-3.4) K/uL [place] # (Auto) 1.30 H (0.11-0.59) K/uL Eos # (Auto) 0.00 (0-0.50) K/uL Baso # (Auto) 0.04 (0-0.2) K/uL Immature Gran # (Auto) 0.35 H (0.01-0.20) K/uL PT (9.0-12.0) Seconds INR (0.9-1.1) APTT (21.0-31.0) Seconds PTT Ratio Sodium 139 (136-145) mmol/L Potassium 5.1 (3.5-5.1) mmol/L Chloride 107 (98-107) mmol/L Carbon Dioxide 25 (21-32) mmol/L Anion Gap 7 (3-11) BUN 31 H (6-23) mg/dl Creatinine 1.87 H (0.6-1.2) mg/dl Est Cr Clr Drug Dosing Not Reportable Est GFR ( Amer) 29.7 ml/min Est GFR (Non-Af Amer) 25.7 ml/min BUN/Creatinine Ratio 16.6 (10-20) Glucose 111 H (70-99(Fasting)) mg/dl Lactate (0.4-2.0) mmol/L Calcium 9.1 (8.6-10.3) mg/dl Troponin I High Sens 21.9 H (0-14) pg/ml Lipase 3 L (11-82) U/L SARS-CoV-2, RNA, NAAT NEGATIVE (NEGATIVE) 11/27/22 11/27/22 Range/Units 18:17 19:50 WBC (4.8-10.8) K/ul RBC (4.20-5.40) M/uL Hgb (12.0-16.0) g/dl Hct (37.0-47.0) % MCV (80.0-100.0) fL MCH (25.0-34.0) pg MCHC (32.0-36.0) g/dL RDW Std Deviation (36.4-46.3) fL RDW Coeff of Flor (11.5-14.5) % Plt Count (130-400) K/uL MPV (9.4-12.4) fL Immature Gran % (Auto) % Neut % (Auto) % Lymph % (Auto) % [place] % (Auto) % Eos % (Auto) % Baso % (Auto) % Neut # (Auto) (1.40-6.50) K/uL Lymph # (Auto) (1.2-3.4) K/uL [place] # (Auto) (0.11-0.59) K/uL Eos # (Auto) (0-0.50) K/uL Baso # (Auto) (0-0.2) K/uL Immature Gran # (Auto) (0.01-0.20) K/uL PT 12.6 H (9.0-12.0) Seconds INR 1.2 H (0.9-1.1) APTT 28.4 (21.0-31.0) Seconds PTT Ratio 1.0 Sodium (136-145) mmol/L Potassium (3.5-5.1) mmol/L Chloride (98-107) mmol/L Carbon Dioxide (21-32) mmol/L Anion Gap (3-11) BUN (6-23) mg/dl Creatinine (0.6-1.2) mg/dl Est Cr Clr Drug Dosing Est GFR ( Amer) ml/min Est GFR (Non-Af Amer) ml/min BUN/Creatinine Ratio (10-20) Glucose (70-99(Fasting)) mg/dl Lactate 1.3 (0.4-2.0) mmol/L Calcium (8.6-10.3) mg/dl Troponin I High Sens (0-14) pg/ml Lipase (11-82) U/L SARS-CoV-2, RNA, NAAT (NEGATIVE) Imaging Data Attestation: I personally reviewed and interpreted this imaging study as follows: My Impression: Pelvis x-ray: Left hip fracture Chest x-ray: Cardiomegaly with cephalization. Radiologist's Impression: Cervical Spine CT 11/27/22 17:37 CT cervical spine wo con CT DOSE: 1644.28 mGy.cm CLINICAL HISTORY: 77 years-old Female with fall. Acute head and neck injury status post fall COMPARISON: Head CT of same day, head CT 11/30/2015 TECHNIQUE: Multiple axial CT images of the cervical spine were obtained without contrast. A dose lowering technique was utilized adhering to the principles of ALARA. FINDINGS: Multilevel degenerative changes of the cervical spine. The study is mildly motion degraded. Levoscoliosis of the cervical spine. No definite acute cervical spine fracture or subluxation identified. Small left mastoid effusion. The cervical soft tissues appear unremarkable. Layering pleural effusions with pulmonary edema. No pneumothorax. Calcified plaque of the carotid bulbs. No prevertebral edema. IMPRESSION: 1. No acute cervical spine fracture or subluxation identified. 2. Layering pleural effusions with pulmonary edema. ACT 112: Negative or not required by law. The above report was generated using voice recognition software. It may contain grammatical, syntax or spelling errors. Electronically signed by: Shahram Salinas M.D. 11/27/2022 7:42 PM Chest X-Ray 11/27/22 17:37 XR chest 1V portable HISTORY: 77 years-old Female Chest pain, nonspecific COMPARISON: Chest CT 10/15/2022 TECHNIQUE: AP view of the chest FINDINGS: Cardiac silhouette is enlarged. Pulmonary vascular congestion with interstitial coarsening. No pneumothorax. Trace pleural effusions are suggested. Mild right hemidiaphragmatic elevation. Degenerative changes of the shoulders and spine. IMPRESSION: 1. Cardiomegaly with pulmonary vascular congestion and interstitial coarsening suggestive of pulmonary edema. 2. Trace pleural effusions. ACT 112: Negative or not required by law. The above report was generated using voice recognition software. It may contain grammatical, syntax or spelling errors. Electronically signed by: Shahram Salinas M.D. 11/27/2022 8:[address] 11/27/22 17:37 CT head/brain wo con CLINICAL HISTORY: 77 years-old Female with fall. Acute head and neck trauma status post fall TECHNIQUE: Multiple axial CT images of the head were obtained without contrast. A dose lowering technique was utilized adhering to the principles of ALARA. COMPARISON: CT cervical spine of same day, head CT 11/30/2015 FINDINGS: Motion degraded exam. Involutional changes with chronic microvascular ischemic disease. No acute intracranial hemorrhage, midline shift, intracranial mass, hydrocephalus, territorial ischemia or abnormal extra-axial collection. The calvarium is intact. 1.2 cm calcified subcutaneous lesion of the right occipital scalp, likely benign The paranasal sinuses, mastoid air cells, and middle ear cavities are clear. IMPRESSION: No acute intracranial abnormality or calvarial fracture. ACT 112: Negative or not required by law. The above report was generated using voice recognition software. It may contain grammatical, syntax or spelling errors. Electronically signed by: Shahram Salinas M.D. 11/27/2022 7:37 PM Lumbar Spine X-Ray 11/27/22 17:38 XR lumbar spine min 4V routine HISTORY: 77 years-old Female fall acute pain of the low back status post fall COMPARISON: CT abdomen pelvis 10/15/2022 TECHNIQUE: 5 views of the lumbar spine FINDINGS: Cholecystectomy. Air-filled loops of large and small bowel likely physiologic. Atherosclerosis of the aorta. Demineralized appearance of the bones. Mild to moderate disc space narrowing and spondylitic spurring with moderate facet arthrosis. No acute fracture, subluxation or endplate erosion identified. IMPRESSION: No acute fracture or subluxation identified. ACT 112: Negative or not required by law. The above report was generated using voice recognition software. It may contain grammatical, syntax or spelling errors. Electronically signed by: Sahhram Salinas M.D. 11/27/2022 8:45 PM Pelvis X-Ray 11/27/22 17:38 XR pelvis 1-2V routine HISTORY: 77 years-old Female fall acute pelvic pain status post fall COMPARISON: CT abdomen pelvis 10/15/2022 TECHNIQUE: AP view of the pelvis FINDINGS: Demineralized appearance of the bones. Mild osteoarthritis of the hips. No acute fracture, dislocation or avascular necrosis. IMPRESSION: No acute fracture or dislocation identified. ACT 112: Negative or not required by law. The above report was generated using voice recognition software. It may contain grammatical, syntax or spelling errors. Electronically signed by: Shahram Salinas M.D. 11/27/2022 8:43 PM Femur X-Ray 11/27/22 17:42 XR femur LT 2V routine HISTORY: 77 years-old Female fall acute pain of the left femur COMPARISON: Pelvis radiograph of same day TECHNIQUE: 2 views of the left femur FINDINGS: Demineralized appearance of the bones. Large joint effusion of the knee. Severe tricompartmental osteoarthritis of the knee. Acute appearing fibular neck fracture. No acute proximal femoral fracture identified. IMPRESSION: 1. Limited exam secondary to positioning. 2. Suboptimally visualized acute fracture of the proximal fibula. Correlation with dedicated knee radiographs recommended. 3. Large left knee joint effusion with severe osteoarthritis. ACT 112: Negative or not required by law. The above report was generated using voice recognition software. It may contain grammatical, syntax or spelling errors. Electronically signed by: Shahram Salinas M.D. 11/27/2022 8:52 PM ECG Data Attestation: I personally reviewed and interpreted this ECG as follows: Additional Comments: EKG #1 at 1733: Atrial fibrillation with a rate of 133. QRS and QTc intervals are within normal limits. No ST elevation or ST depression. EKG #2 at 1805: Atrial fibrillation with a rate of 106. QRS and QTc intervals within normal limits. No ST elevation or ST depression. [facility] Narrative 1734: The patient was evaluated in room B11. A complete history and physical exam was performed Cardiac monitoring: An order was placed for continuous cardiac monitoring. The monitor shows a rate of 140 with atrial fibrilation rhythm interpreted by me Patient found to be in A-fib RVR. Cardizem bolus was given and patient be started on Cardizem drip. 2005: Vital signs stable on Cardizem drip. Labs show leukocytosis 143.32. Patient has a history of chronically elevated white blood cell counts. Creatinine is at baseline at 1.87. High-sensitivity troponin is elevated 27.3 but this could be due to the patient's elevated creatinine. X-rays reviewed by me show a left-sided hip fracture as well as a chest x-ray showing cardiomegaly with fluid overload. Lasix ordered for the patient. [facility] on Cardizem drip with consult orthopedics for routine. Impression & Plan Atrial fibrillation with RVR, Fluid overload, Leukocytosis, Hip fracture Discharge Plan Visit Data Chief Complaint: Fall ED Provider: Asaf Ramirez Discharge Problem: Atrial fibrillation with RVR, Fluid overload, Leukocytosis, Hip fracture Patient Disposition: Admitted As Inpatient Discharge Instructions Interventions: ED Discharge Assessment Last Done: 11/27/22 22:29
[2022-11-28] MEDS: HEPARIN SOD 5,000 UNIT/0.5 ML VIAL SQ SCH ×4 (01:58→22:47)
[2022-11-28] MEDS ORDERED: TRANEXAMIC ACID / 0.7% NACL 1,000 MG/100 ML BAG IV SCH ×2 (06:00→06:30)
[2022-11-28 06:39] LABS: Hematocrit (blood only) 36.1 % (37.0-47.0); Hemoglobin 10.4 g/dl (12.0-16.0); Mean Corpuscular Hemoglobin 28.1 pg (25.0-34.0); Mean Corpuscular Hgb Conc 28.8 g/dL (32.0-36.0); Mean Corpuscular Volume 97.6 fL (80.0-100.0); Mean Platelet Volume 13.7 fL (9.4-12.4); Platelet Count 72 K/uL (130-400); RDW Coefficient of Variation 20.3 % (11.5-14.5); RDW Standard Deviation 66.2 fL (36.4-46.3); White Blood Count 148.99 K/ul (4.8-10.8)
[2022-11-28 06:45] LABS: Albumin Level 3.5 gm/dl (3.4-5.0); BUN Creatinine Ratio 15.4 (10-20); Creatinine Clr Calc Pharmacy 28.7 ml/min; Est GFR (African American) 28.3 ml/min; Est GFR (Non-African American) 24.4 ml/min; Phosphorus 4.5 mg/dl (2.5-4.9); Potassium 4.6 mmol/L (3.5-5.1)
[2022-11-28 07:35] LABS: Basophils # (auto) 0.02 K/uL (0-0.2); Eosinophils # (auto) 0.01 K/uL (0-0.50); Immature Granulocytes # (auto) 0.29 K/uL (0.01-0.20); Immature Granulocytes % (auto) 0.2 %; Lymphocytes # (auto) 140.61 K/uL (1.2-3.4); Lymphocytes % (auto) 94.4 %; Monocytes % (auto) 1.1 %; Neutrophils # (auto) 6.36 K/uL (1.40-6.50); Neutrophils % (auto) 4.3 %; Ovalocytes 1+; Smudge Cells Present
--- NOTE | 2022-11-28 10:29 | Orthopedic Consultation ---
Date of Consultation November 28, 2022 Assessment & Plan (1) Knee pain, left: She does have an effusion to her left knee. Also some mild tenderness around the left knee. The left knee was visualized and a left femur x-ray. We are getting dedicated left knee x-rays to further evaluate the left knee itself. We also are going to get a left tib-fib x-ray to check on that proximal fibula fracture. We will continue to have her be n.p.o. He do not think that she has a left hip fracture. If x-rays are negative or only show proximal fibula fracture she most likely will be able to weight-bear as tolerated on her left lower extremity. We will await x-ray to be completed before making any further recommendations. She also has a right knee contusion and pain and effusion. Will obtain x-rays of the right knee. Currently ordered and pending. She also has right ankle edema, ecchymosis and tenderness with palpation. X- rays of the right ankle have been ordered and are currently pending. Findings discussed with Dr. Sadler. Will await x-ray reports and imaging once completed. We will determine activity and n.p.o. status once they are completed. Would recommend continued bedrest for now until x-rays have been completed. Patient agrees with getting x-rays of her knees and ankle. Discussed plan with Cait as well. I called them to get more information as patient is a poor historian. Supervising Physician Co-Signing Physician Notes I saw and examined the patient, reviewed her imaging studies, and performed the substantive portion of the visit. She has bilateral knee arthritis with effusions, left fibula fracture, and right ankle pain with swelling. Does NOT have a hip fracture. Recommend medical management of her arthritis. No surgery indicated. Recommend PT/OT evaluation. Should use a walker and assistance if attempting to ambulate, but may need to be confined to a wheelchair. Orthopaedics will sign off, and she can follow-up as needed. History of Present Illness Reason for Consultation: left leg pain, possible left hip fracture; left proximal fibula fracture Attending Physician: Jeffrey Tran History of Present Illness Fall yesterday morning. Confirmed with [facility]. Has had multiple falls, Last fall on 11/21 and 11/27. Sitting in front of floor, ambulated to toilet, landed on knees. Ambulates normally with walker around [facility]. Yesterday she rang for nurses as she fell in the floor. She was found in front of the toilet, on her knees, complaining of left knee pain. She was able to get up and still complained of left knee pain. No complaints of left hip pain. Was able to ambulate back to bed with walker assistance, but brought to ED due to color changes and not feeling well. She did have [facility] xrays at [facility] after the fall and found to have left knee DJD, no fractures. SENIOR DATABASE PROGRAMMER at [facility] recommended ED evaluation due to elevated WBC. Nursing from [facility] states that she is hard to communicate with, most of the time she doesn't answer, or calls nurses names when they don't know the answers to her questions. She gets very irritated with multiple questions, etc. Saw patient today at bedside. She is resting in bed comfortably. She did acknowledge my presence. She gave me permission to examine both of her legs. She states this morning that she has right leg pain. She does admit to falling but states it was "last Saturday". She also tells me that she has a left hip fracture. She states that she does normally walk with a walker but does not have her walker with her. She stated to me that she fell when she had 2 nurses around her onto her knees. She is currently n.p.o. She had x-rays here at the hospital of her pelvis and left hip which showed no evidence of acute bony abnormality or fracture. She did have left x-rays of her left femur which show severe end-stage osteoarthritis of her left knee and an acute left proximal fibular fracture seen on the AP view. Dedicated knee x-rays and tib-fib x-rays have been ordered. Currently pending. She states that she also has right knee and right ankle pain with any type of movement. She states that she is unable to walk. Allergies Allergy/AdvReac Type Severity Reaction Status Date / Time spinach Allergy Unknown diarrhea Unverified 11/27/22 17:56 lactose AdvReac lactose Verified 11/27/22 17:56 intolerance Home Medications Medication Instructions Recorded Confirmed Type Bengay Lidocaine Cream 4% 1 applic topical QS 11/27/22 11/27/22 History acetaminophen 325 mg tablet 650 mg PO Q6 PRN Fever Or Pain 11/27/22 11/27/22 History atorvastatin 20 mg tablet 20 mg PO DAILY 11/27/22 11/27/22 History cholecalciferol (vitamin D3) 50 100 mcg PO DAILY 11/27/22 11/27/22 History mcg (2,000 unit) tablet (Vitamin D3) citalopram 10 mg tablet 10 mg PO DAILY 11/27/22 11/27/22 History divalproex 250 mg tablet,delayed 500 mg PO BID 11/27/22 11/27/22 History release lactase 3,000 unit tablet (Lactaid) 3,000 unit PO WM 11/27/22 11/27/22 History levothyroxine 25 mcg tablet 25 mcg PO QAM 11/27/22 11/27/22 History lisinopril 5 mg tablet 5 mg PO DAILY 11/27/22 11/27/22 History oxybutynin chloride 5 mg 5 mg PO DAILY 11/27/22 11/27/22 History tablet,extended release 24 hr Patient History Medical History (Updated 11/28/22 @ 10:26 by Ignacia Lu PA-C) Bladder spasms CHF (congestive heart failure) CKD (chronic kidney disease), stage III CLL (chronic lymphocytic leukemia) Depression Diabetes Hyperlipidemia Hypertension Hypothyroidism No pertinent family history Seizure disorder Surgical History (Updated 11/28/22 @ 01:32 by Asaf Ramirez) No pertinent past surgical history Social History Smoking Status: Unknown if ever smoked Hx Substance Use: No (UNKNOWN) Preferred Language: Slovak Communication Ability: Impaired Communication Ability Comment: pt has dememtia non-verbal mostly Floor Clerk Required: No Beliefs That Will Affect Care: None Current Living Situation: Senior Living Other Information That Helps Us Care for You: Yes Feels Safe at Home: Yes Assistive Devices: Walker and Other Assistive Devices Comment: THESE ARE UNKNOWN Review of Systems Review of Systems: All systems reviewed & are unremarkable except as noted in HPI & below Physical Exam Constitutional: + frail appearing and cooperative; not in distress, not combative and not lethargic Musculoskeletal: Bilateral upper extremities were evaluated. She does have ecchymosis in antecubital fossa's bilaterally. Her shoulders, elbows, upper arms, forearms and hands are nontender. No edema in either upper extremity. She is able to actively move both shoulders, elbow and hands and fingers freely. They are nontender to palpation with gentle palpation today. Exam of bilateral lower extremities: She does have SCDs in place. These were removed and on both shins she has erythematous skin. No breakdown in skin tissue. She has a lot of edema of the right ankle with ecchymosis on the lateral side of the ankle and tenderness with palpation over the distal fibula. Toes are also edematous bilaterally and move freely. She is able to move those upon command. She attempts gentle range of motion of both ankles with dorsiflexion plantarflexion. I am not able to do any strength testing today due to her not following commands. Dorsalis pedis pulses 1+ bilaterally. Feet are warm. She is unable to independently straight leg raise either lower extremity. The left leg is held in a slight bit of external rotation but I am able to straighten up her foot without any noticeable discomfort. She does tolerate gentle logrolling of her left leg at hip. It does reproduce some pain in the left knee. When lifting either leg or attempting to bend her knees passively she has pain bilateral lower extremities. She is unable to independently straight leg raise bilaterally. She has an effusion to both knees. Also may be even a prepatellar effusion on the left knee. She has ecchymosis on the medial side of the right knee and the lateral side of the left knee. The quad tendon and patellar tendons seem to be intact with no defect palpated. Extensor mechanism not able to be tested. She has no medial joint line tenderness over either knee today. She is not tender with palpation of left proximal fibula. She has sort of diffuse tenderness throughout both tib-fib's. She has no calf discomfort. Her calves are supple. She has pads on both of her heels. Her left ankle is nontender. She tolerates logrolling of her right hip. She is nontender with palpation over the right or left hip, groin, iliac crest, pubic symphysis, greater trochanters. There is no surrounding ecchymosis or evidence of trauma to either hip. She is nontender with palpation over the right thigh. She has some mild tenderness over the distal third of the left thigh but nothing mid or upper thigh. Hip flexion was unobtainable due to her inability to tolerate me gently lifting or moving her legs, bilaterally. Results & Data Vital Signs (Past 12 Hours) Vital Signs Temp Pulse Pulse Resp BP Pulse Ox O2 Del Method 11/28/22 08:08 36.8 C 83 19 121/76 95 Nasal Cannula 11/27/22 23:00 92 H 11/28/22 02:49 36.8 C 88 24 107/84 97 Nasal Cannula 11/27/22 22:35 Nasal Cannula 11/27/22 22:54 36.8 C 94 H 16 127/79 95 Nasal Cannula 11/27/22 22:49 36.8 C 99 H 16 127/79 95 Nasal Cannula O2 Flow Rate FiO2 11/28/22 08:08 2 11/27/22 23:00 11/28/22 02:49 2 11/27/22 22:35 2 11/27/22 22:54 2 11/27/22 22:49 2 Laboratory Results 11/28/22 11/28/22 11/28/22 Range/Units 06:15 05:58 05:58 WBC 148.99 H* (4.8-10.8) K/ul RBC 3.70 L (4.20-5.40) M/uL Hgb 10.4 L (12.0-16.0) g/dl Hct 36.1 L (37.0-47.0) % MCV 97.6 (80.0-100.0) fL MCH 28.1 (25.0-34.0) pg MCHC 28.8 L (32.0-36.0) g/dL RDW Std Deviation 66.2 H (36.4-46.3) fL RDW Coeff of Flor 20.3 H (11.5-14.5) % Plt Count 72 L (130-400) K/uL MPV 13.7 H (9.4-12.4) fL Immature Gran % (Auto) 0.2 % Neut % (Auto) 4.3 % Lymph % (Auto) 94.4 % Fannin % (Auto) 1.1 % Eos % (Auto) 0.0 % Baso % (Auto) 0.0 % Neut # (Auto) 6.36 (1.40-6.50) K/uL Lymph # (Auto) 140.61 H (1.2-3.4) K/uL Fannin # (Auto) 1.70 H (0.11-0.59) K/uL Eos # (Auto) 0.01 (0-0.50) K/uL Baso # (Auto) 0.02 (0-0.2) K/uL Immature Gran # (Auto) 0.29 H (0.01-0.20) K/uL Smudge Cells Present Ovalocytes 1+ PT (9.0-12.0) Seconds INR (0.9-1.1) APTT (21.0-31.0) Seconds PTT Ratio Sodium 143 (136-145) mmol/L Potassium 4.6 (3.5-5.1) mmol/L Chloride 107 (98-107) mmol/L Carbon Dioxide 30 (21-32) mmol/L Anion Gap 6 (3-11) BUN 30 H (6-23) mg/dl Creatinine 1.95 H (0.6-1.2) mg/dl Est Cr Clr Drug Dosing 28.7 Est GFR ( Amer) 28.3 ml/min Est GFR (Non-Af Amer) 24.4 ml/min BUN/Creatinine Ratio 15.4 (10-20) Glucose 87 (70-99(Fasting)) mg/dl POC Glucose 81 (70-99) mg/dl Lactate (0.4-2.0) mmol/L Calcium 9.0 (8.6-10.3) mg/dl Phosphorus 4.5 (2.5-4.9) mg/dl Magnesium 2.0 (1.7-2.4) mg/dl Troponin I High Sens (0-14) pg/ml Albumin 3.5 (3.4-5.0) gm/dl Lipase (11-82) U/L SARS-CoV-2, RNA, NAAT (NEGATIVE) 11/28/22 11/28/22 11/28/22 Range/Units 05:58 00:37 00:04 WBC (4.8-10.8) K/ul RBC (4.20-5.40) M/uL Hgb (12.0-16.0) g/dl Hct (37.0-47.0) % MCV (80.0-100.0) fL MCH (25.0-34.0) pg MCHC (32.0-36.0) g/dL RDW Std Deviation (36.4-46.3) fL RDW Coeff of Flor (11.5-14.5) % Plt Count (130-400) K/uL MPV (9.4-12.4) fL Immature Gran % (Auto) % Neut % (Auto) % Lymph % (Auto) % Fannin % (Auto) % Eos % (Auto) % Baso % (Auto) % Neut # (Auto) (1.40-6.50) K/uL Lymph # (Auto) (1.2-3.4) K/uL Fannin # (Auto) (0.11-0.59) K/uL Eos # (Auto) (0-0.50) K/uL Baso # (Auto) (0-0.2) K/uL Immature Gran # (Auto) (0.01-0.20) K/uL Smudge Cells Ovalocytes PT (9.0-12.0) Seconds INR (0.9-1.1) APTT (21.0-31.0) Seconds PTT Ratio Sodium (136-145) mmol/L Potassium (3.5-5.1) mmol/L Chloride (98-107) mmol/L Carbon Dioxide (21-32) mmol/L Anion Gap (3-11) BUN (6-23) mg/dl Creatinine (0.6-1.2) mg/dl Est Cr Clr Drug Dosing Est GFR ( Amer) ml/min Est GFR (Non-Af Amer) ml/min BUN/Creatinine Ratio (10-20) Glucose (70-99(Fasting)) mg/dl POC Glucose 116 H (70-99) mg/dl Lactate (0.4-2.0) mmol/L Calcium (8.6-10.3) mg/dl Phosphorus (2.5-4.9) mg/dl Magnesium (1.7-2.4) mg/dl Troponin I High Sens 28.9 H 27.7 H (0-14) pg/ml Albumin (3.4-5.0) gm/dl Lipase (11-82) U/L SARS-CoV-2, RNA, NAAT (NEGATIVE) 11/27/22 11/27/22 11/27/22 Range/Units 22:22 19:50 18:17 WBC (4.8-10.8) K/ul RBC (4.20-5.40) M/uL Hgb (12.0-16.0) g/dl Hct (37.0-47.0) % MCV (80.0-100.0) fL MCH (25.0-34.0) pg MCHC (32.0-36.0) g/dL RDW Std Deviation (36.4-46.3) fL RDW Coeff of Flor (11.5-14.5) % Plt Count (130-400) K/uL MPV (9.4-12.4) fL Immature Gran % (Auto) % Neut % (Auto) % Lymph % (Auto) % Fannin % (Auto) % Eos % (Auto) % Baso % (Auto) % Neut # (Auto) (1.40-6.50) K/uL Lymph # (Auto) (1.2-3.4) K/uL Fannin # (Auto) (0.11-0.59) K/uL Eos # (Auto) (0-0.50) K/uL Baso # (Auto) (0-0.2) K/uL Immature Gran # (Auto) (0.01-0.20) K/uL Smudge Cells Ovalocytes PT 12.6 H (9.0-12.0) Seconds INR 1.2 H (0.9-1.1) APTT 28.4 (21.0-31.0) Seconds PTT Ratio 1.0 Sodium (136-145) mmol/L Potassium (3.5-5.1) mmol/L Chloride (98-107) mmol/L Carbon Dioxide (21-32) mmol/L Anion Gap (3-11) BUN (6-23) mg/dl Creatinine (0.6-1.2) mg/dl Est Cr Clr Drug Dosing Est GFR ( Amer) ml/min Est GFR (Non-Af Amer) ml/min BUN/Creatinine Ratio (10-20) Glucose (70-99(Fasting)) mg/dl POC Glucose (70-99) mg/dl Lactate 1.3 (0.4-2.0) mmol/L Calcium (8.6-10.3) mg/dl Phosphorus (2.5-4.9) mg/dl Magnesium (1.7-2.4) mg/dl Troponin I High Sens 27.3 H (0-14) pg/ml Albumin (3.4-5.0) gm/dl Lipase (11-82) U/L SARS-CoV-2, RNA, NAAT (NEGATIVE) 11/27/22 11/27/22 11/27/22 Range/Units 18:17 18:17 18:07 WBC 143.32 H* (4.8-10.8) K/ul RBC 3.61 L (4.20-5.40) M/uL Hgb 10.3 L (12.0-16.0) g/dl Hct 34.5 L (37.0-47.0) % MCV 95.6 (80.0-100.0) fL MCH 28.5 (25.0-34.0) pg MCHC 29.9 L (32.0-36.0) g/dL RDW Std Deviation 63.6 H (36.4-46.3) fL RDW Coeff of Flor 20.0 H (11.5-14.5) % Plt Count 75 L (130-400) K/uL MPV 12.9 H (9.4-12.4) fL Immature Gran % (Auto) 0.2 % Neut % (Auto) 5.7 % Lymph % (Auto) 93.2 % Fannin % (Auto) 0.9 % Eos % (Auto) 0.0 % Baso % (Auto) 0.0 % Neut # (Auto) 8.07 H (1.40-6.50) K/uL Lymph # (Auto) 133.56 H (1.2-3.4) K/uL Fannin # (Auto) 1.30 H (0.11-0.59) K/uL Eos # (Auto) 0.00 (0-0.50) K/uL Baso # (Auto) 0.04 (0-0.2) K/uL Immature Gran # (Auto) 0.35 H (0.01-0.20) K/uL Smudge Cells Ovalocytes PT (9.0-12.0) Seconds INR (0.9-1.1) APTT (21.0-31.0) Seconds PTT Ratio Sodium 139 (136-145) mmol/L Potassium 5.1 (3.5-5.1) mmol/L Chloride 107 (98-107) mmol/L Carbon Dioxide 25 (21-32) mmol/L Anion Gap 7 (3-11) BUN 31 H (6-23) mg/dl Creatinine 1.87 H (0.6-1.2) mg/dl Est Cr Clr Drug Dosing Not Reportable Est GFR ( Amer) 29.7 ml/min Est GFR (Non-Af Amer) 25.7 ml/min BUN/Creatinine Ratio 16.6 (10-20) Glucose 111 H (70-99(Fasting)) mg/dl POC Glucose (70-99) mg/dl Lactate (0.4-2.0) mmol/L Calcium 9.1 (8.6-10.3) mg/dl Phosphorus (2.5-4.9) mg/dl Magnesium (1.7-2.4) mg/dl Troponin I High Sens 21.9 H (0-14) pg/ml Albumin (3.4-5.0) gm/dl Lipase 3 L (11-82) U/L SARS-CoV-2, RNA, NAAT NEGATIVE (NEGATIVE) Diagnostic Findings XR femur LT 2V routine HISTORY: 77 years-old Female fall acute pain of the left femur COMPARISON: Pelvis radiograph of same day TECHNIQUE: 2 views of the left femur FINDINGS: Demineralized appearance of the bones. Large joint effusion of the knee. Severe tricompartmental osteoarthritis of the knee. Acute appearing fibular neck fracture. No acute proximal femoral fracture identified. IMPRESSION: 1. Limited exam secondary to positioning. 2. Suboptimally visualized acute fracture of the proximal fibula. Correlation with dedicated knee radiographs recommended. 3. Large left knee joint effusion with severe osteoarthritis. XR pelvis 1-2V routine HISTORY: 77 years-old Female fall acute pelvic pain status post fall COMPARISON: CT abdomen pelvis 10/15/2022 TECHNIQUE: AP view of the pelvis FINDINGS: Demineralized appearance of the bones. Mild osteoarthritis of the hips. No acute fracture, dislocation or avascular necrosis. IMPRESSION: No acute fracture or dislocation identified. X-rays of left knee, left tib-fib, right knee and right ankle have been ordered and currently pending.
--- NOTE | 2022-11-28 10:49 | XRay Report ---
XR knee LT 3V, XR tibia fibula LT 2V CLINICAL HISTORY: eval prox fibula fracture TECHNIQUE: 3 views of the left knee and 2 views of the left tibia and fibula were obtained. Comparison: Comparison is made to left femur radiographs 11/27/2022 FINDINGS: There is a minimally displaced fracture of the proximal fibular metaphysis. Degenerative changes are seen in the knee with joint space narrowing and osteophyte formation. There is a likely joint effusio n. Soft tissue swelling is seen about the knee. IMPRESSION: 1. Redemonstration of a minimally displaced fracture of the proximal fibular diaphysis. 2. Degenerative changes are seen about the knee. There is a suprapatellar effusion and soft tissue s welling. ACT 112: Negative or not required by law. Electronically signed by: Brad Ryan M.D. 11/28/2022 10:48 AM
--- NOTE | 2022-11-28 10:51 | XRay Report ---
XR ankle RT min 3V routine CLINICAL HISTORY: pain, bruising, edema, s/p fall TECHNIQUE: 3 views of the right ankle were obtained. Comparison: None available at the time of this dictation. FINDINGS: No acute fractures are present. Degenerative changes are seen. The ankle mortise is intact. Soft tiss ue swelling is seen about the ankle. IMPRESSION: Soft tissue swelling is seen without evidence of underlying bony abnormality. ACT 112: Negative or not required by law. Electronically signed by: Brad Ryan M.D. 11/28/2022 10:50 AM
[2022-11-28] MEDS ORDERED: DEXTROSE 50% 50 ML SYRINGE IV ONE (11:24)
--- NOTE | 2022-11-28 11:27 | XRay Report ---
XR knee RT 3V HISTORY: 77 years-old Female right knee pain, effusion, s/p fall chronic pain and swelling of the bi lateral knees COMPARISON: Left knee radiographs of same day TECHNIQUE: 3 views of the right knee FINDINGS: Chondrocalcinosis with mild to moderate tricompartmental osteoarthritis. Moderate sized joint effusio n. No acute fracture or dislocation. Diffuse soft tissue prominence. IMPRESSION: 1. Moderate size joint effusion without acute fracture or dislocation. 2. Chondrocalcinosis with mild to moderate tricompartmental osteoarthritis. ACT 112: Negative or not required by law. The above report was generated using voice recognition software. It may contain grammatical, syntax o r spelling errors. Electronically signed by: Shahram Salinas M.D. 11/28/2022 11:25 AM
[2022-11-28] MEDS ORDERED: ACETAMINOPHEN 1,000 MG/100 ML VIAL IV PRN (14:51)
--- NOTE | 2022-11-28 17:36 | XCELERA ---
[id number] [id number]
[2022-11-28] MEDS: dilTIAZem HCL 125 MG in DEXTROSE 5% 100 ML IV SCH (17:52)
[2022-11-28] MEDS: DOCUSATE SODIUM/SENNA 50/8.6MG TAB PO SCH (20:20)
--- NOTE | 2022-11-28 22:08 | Hospitalist Progress Note ---
Date of Service November 28, 2022 Assessment & Plan (1) Hyperlipidemia: (2) CLL (chronic lymphocytic leukemia): (3) Bladder spasms: (4) Hypothyroidism: (5) Depression: (6) Hip fracture: (7) Atrial fibrillation with RVR: (8) Hypertension: (9) Diabetes: (10) Seizure disorder: (11) CHF (congestive heart failure): Plan Closed left hip fracture- Resumed diet Ortho reports no sugrical intervention required, awaiting PT/OT Continue dilaudid Placed on DVT prophylaxis with heparin subcu Atrial fibrillation with RVR/hypertension/CHF- Hold lisinopril Continue diltiazem drip Furosemide 40 mg IV, follow response Order echocardiogram Consult cardiology Dr. Lopez Heparin subcu for DVT prophylaxis: will transition to heparin drip Seizure disorder- Continue divalproex 500 mg p.o. twice daily Hyperlipidemia- Atorvastatin will resume on 11/29 Depression- Citalopram will resume on 11/29 Hypothyroidism- Levothyroxine will resume on 11/29 Bladder spasms- Oxybutynin will resume in AM Admission and Anticipated Discharge Date Admission Date: November 27, 2022 Subjective Patient is a poor historian. She appears to be comfortable. Review of Systems Review of Systems: All systems reviewed & are unremarkable except as noted in HPI & below Physical Exam Physical Exam: The patient is awake, normocephalic and atraumatic, lying in bed and in no acute distress. Neck--supple. No JVD. No bruits. Thyroid normal, trachea midline, no adenopathy. Heart--normal S1 and S2. No murmurs, rubs or gallops. Lungs--clear bilaterally, no respiratory distress, no accessory muscle use. Abdomen--normal bowel sounds and soft. Nontender. Nondistended, no hernias or masses, no organomegaly. Extremities--no cyanosis or clubbing. No edema. OA changes noted on inspection on bilateral knees Results & Data Results & Data Vital Signs (Past 12 Hours) Vital Signs Temp Pulse Resp BP Pulse Ox O2 Del Method O2 Flow Rate 11/28/22 20:00 Nasal Cannula 2 11/28/22 19:51 96 Nasal Cannula 2 11/28/22 19:49 36.7 C 90 16 106/61 89 L Room Air 11/28/22 15:00 36.8 C 94 H 19 113/72 97 Nasal Cannula 2.0 11/28/22 11:30 36.5 C 78 17 126/63 97 Nasal Cannula 2 PG Care Time/CCT Total # of Minutes Spent Total Time Spent with Patient: Total time spent is greater than 50% in coordination of care (as documented) at patient's floor/unit and/or counseling patient: Coding Level of Care Code 45499 SUB INP/OBS CARE 3/50MIN Diagnoses Hyperlipidemia E78.5 CLL (chronic lymphocytic leukemia) C91.90 Bladder spasms N32.89 Hypothyroidism E03.9 Depression F32.9 Hip fracture S72.009A Encounter type: initial encounter Laterality: left Atrial fibrillation with RVR I48.91 Hypertension I10 Diabetes E11.9 Seizure disorder G40.909 CHF (congestive heart failure) I50.9 (6) Hip fracture Encounter type: initial encounter Laterality: left
--- NOTE | 2022-11-29 05:32 | Electrocardiogram Report ---
Test Reason : Blood Pressure : / mmHG Vent. Rate : 133 BPM Atrial Rate : 136 BPM P-R Int : 000 ms QRS Dur : 098 ms QT Int : 296 ms P-R-T Axes : 000 012 226 degrees QTc Int : 440 ms Poor data quality, interpretation may be adversely affected Atrial fibrillation with rapid ventricular response Nonspecific ST and T wave abnormality Abnormal ECG When compared with ECG of 25-DEC-2017 16:54, Atrial fibrillation has replaced Sinus rhythm Vent. rate has increased BY 77 BPM Non-specific change in ST segment in Inferior leads T wave inversion now evident in Anterolateral leads Confirmed by Evans Qiu ([id number]) on 11/29/2022 5:31:48 AM Referred By: REFERRED SELF Confirmed By:Evans Qiu
--- NOTE | 2022-11-29 05:33 | Electrocardiogram Report ---
Test Reason : Blood Pressure : / mmHG Vent. Rate : 106 BPM Atrial Rate : 122 BPM P-R Int : 000 ms QRS Dur : 098 ms QT Int : 336 ms P-R-T Axes : 000 024 246 degrees QTc Int : 446 ms Atrial fibrillation with rapid ventricular response Nonspecific ST and T wave abnormality T wave abnormality, consider anterolateral ischemia Abnormal ECG When compared with ECG of 27-NOV-2022 17:33, No significant change was found Confirmed by Evans Qiu ([id number]) on 11/29/2022 5:33:12 AM Referred By: REFERRED SELF Confirmed By:Evans Qiu
--- NOTE | 2022-11-29 06:02 | Electrocardiogram Report ---
Test Reason : Blood Pressure : / mmHG Vent. Rate : 084 BPM Atrial Rate : 208 BPM P-R Int : 000 ms QRS Dur : 100 ms QT Int : 400 ms P-R-T Axes : 000 038 246 degrees QTc Int : 472 ms Atrial fibrillation Prolonged QT Abnormal ECG When compared with ECG of 27-NOV-2022 18:05, No significant change was found Confirmed by Evans Qiu ([id number]) on 11/29/2022 6:02:28 AM Referred By: REFERRED SELF Confirmed By:Evans Qiu
[2022-11-29] MEDS: HEPARIN SOD 5,000 UNIT/0.5 ML VIAL SQ SCH (06:11)
[2022-11-29] MEDS ORDERED: ACETAMINOPHEN 325 MG TAB PO PRN (07:04)
[2022-11-29] MEDS ORDERED: LEVOTHYROXINE SODIUM 50 MCG TABLET PO STA (07:10)
[2022-11-29] MEDS ORDERED: Heparin IV Adult Wt-Based Standard *NO* Bolus Protocol IV SCH (07:10)
[2022-11-29] MEDS ORDERED: LEVOTHYROXINE SODIUM 25 MCG TABLET PO SCH (07:30)
[2022-11-29 07:41] LABS: BUN Creatinine Ratio 18.3 (10-20); Calcium 8.9 mg/dl (8.6-10.3); Creatinine Clr Calc Pharmacy 28.8 ml/min; Est GFR (African American) 27.9 ml/min; Est GFR (Non-African American) 24.1 ml/min; Magnesium 1.8 mg/dl (1.7-2.4); Phosphorus 2.9 mg/dl (2.5-4.9); Potassium 4.1 mmol/L (3.5-5.1)
[2022-11-29 07:49] LABS: Hematocrit (blood only) 32.4 % (37.0-47.0); Hemoglobin 9.3 g/dl (12.0-16.0); Mean Corpuscular Hemoglobin 27.6 pg (25.0-34.0); Mean Corpuscular Hgb Conc 28.7 g/dL (32.0-36.0); Mean Corpuscular Volume 96.1 fL (80.0-100.0); Platelet Count 61 K/uL (130-400); RDW Standard Deviation 64.9 fL (36.4-46.3); Red Blood Count 3.37 M/uL (4.20-5.40); White Blood Count 119.27 K/ul (4.8-10.8)
--- NOTE | 2022-11-29 08:21 | Hospitalist Progress Note ---
Date of Service November 29, 2022 Assessment & Plan (1) Fibula fracture: Plan: Closed left proximal fibula fracture-acute high risk now due to not operative candidate pain control with iv dilaudid. po ultram offered Placed on DVT prophylaxis with heparin subcu (2) CLL (chronic lymphocytic leukemia): Plan: Chronic unclear if stable wbc is 119,000 has anemia and thrombocytopenia secondary to CLL (3) Atrial fibrillation with RVR: Plan: chronic with instability, Atrial fibrillation with RVR/hypertension, rate controlled Hold lisinopril transition from iv diltiazem to po Furosemide 40 mg IV, echocardiogram shows systolic and diastolic heart failure Consult cardiology Dr. Lopez heparin drip, with bruising and lower platelets caution to convert to po anticoagulation (4) Seizure disorder: Plan: chronic stable Continue divalproex 500 mg p.o. twice daily Admission and Anticipated Discharge Date Admission Date: November 27, 2022 Subjective Patient is pleasantly confused she has multiple areas of bruising. She has a fibular fracture which orthopedics feels is nonsurgical clear allowing weightbearing with ambulation Patient has some gluteal small decubitus present on admission but multiple areas of bruising from falling. Patient is transitioning from diltiazem for atrial fibrillation intravenously and orally Otherwise she has no acute complaints or problems Physical Exam Physical Exam: pt with orientation x2 bruising to arms right ankle and gluteal area with small open area Results & Data Results & Data Vital Signs (Past 12 Hours) Vital Signs Temp Pulse Pulse Resp BP Pulse Ox O2 Del Method 11/29/22 07:24 98.2 F 90 20 129/77 95 Nasal Cannula 11/29/22 04:00 97.7 F 95 H 20 114/66 96 Nasal Cannula 11/28/22 22:00 90 11/28/22 22:57 97.7 F 94 H 16 113/75 97 Nasal Cannula O2 Flow Rate 11/29/22 07:24 1 11/29/22 04:00 2 11/28/22 22:00 11/28/22 22:57 2 PG Care Time/CCT Total # of Minutes Spent Total Time Spent with Patient: Total time spent is greater than 50% in coordination of care (as documented) at patient's floor/unit and/or counseling patient: Coding Level of Care Code 34046 SUB INP/OBS CARE 3/50MIN Diagnoses Fibula fracture S82.409A CLL (chronic lymphocytic leukemia) C91.90 Atrial fibrillation with RVR I48.91 Seizure disorder G40.909
[2022-11-29 08:23] LABS: Basophils # (auto) 0.04 K/uL (0-0.2); Eosinophils # (auto) 0.16 K/uL (0-0.50); Eosinophils % (auto) 0.1 %; Immature Granulocytes # (auto) 0.16 K/uL (0.01-0.20); Immature Granulocytes % (auto) 0.1 %; Lymphocytes % (auto) 95.2 %; Monocytes # (auto) 1.26 K/uL (0.11-0.59); Monocytes % (auto) 1.1 %; Neutrophils # (auto) 4.05 K/uL (1.40-6.50); Neutrophils % (auto) 3.5 %; Ovalocytes 1+; Smudge Cells Present
[2022-11-29] MEDS: CITALOPRAM 20 MG TAB PO SCH (09:11)
[2022-11-29] MEDS: CHOLECALCIFEROL 1,000 UNITS 25 MCG TAB PO SCH (09:11)
[2022-11-29] MEDS: DIVALPROEX EXTENDED RELEASE 500 MG TAB PO SCH ×2 (09:11→21:31)
[2022-11-29] MEDS: HEPARIN SODIUM/DEXTROSE 25,000 UNITS/500 ML BAG IV SCH (09:11)
[2022-11-29] MEDS: OXYBUTYNIN CHLORIDE XL 5 MG TABCR PO SCH (09:11)
[2022-11-29] MEDS: ATORVASTATIN 20 MG TAB PO SCH (09:11)
[2022-11-29] MEDS: lisinopril 5 MG TAB PO SCH (09:11)
[2022-11-29] MEDS: SODIUM CHLORIDE 0.9% 1000ML 1,000 ML IV SCH (09:12)
--- NOTE | 2022-11-29 09:42 | Orthopedic Progress Note ---
Date of Service November 29, 2022 Assessment & Plan (1) Fracture of neck of left fibula: Plan: Patient is pleasantly confused. She is able to answer with yes or no, and does seem to understand some questions. From an orthopedic standpoint, she is fine to do transfers from bed to chair with assistance. Her fibular fracture is stable. She does have significant arthritis in her knees, likely contributing to her effusions. This can be followed on an outpatient basis if desired. She has no other acute orthopedic needs, and we will sign off unless her condition changes. Please feel free to reconsult as needed. Continue with ice, elevation, and light compression for edema and effusion control. Admission and Anticipated Discharge Date Admission Date: November 27, 2022 Subjective This 77-year-old female is seen today in her room. She is sitting up. Pleasantly confused. She has no complaints. Physical Exam Physical Exam: General: Well-developed, obese, elderly female, in no acute distress. Sitting up in bed. Awake but not oriented. Answers yes or no to certain questions. Skin: Warm and dry with good turgor. No rashes. Patient does have ecchymosis present around the left knee. Generalized edema to both lower extremities. Kn ee effusions are present bilaterally. Musculoskeletal: The patient does not complain of any pain with palpation around the right knee, right ankle, or left knee. She does wince with palpation around the fibular head on the left, but does not verbalize pain. No complaints with palpation around the left ankle. Denies pain with gentle passive motion of both knees. Vascular: Patient does have posterior tibial pulses of 2+ bilaterally. Inflatable boots are in place bilaterally. Results & Data Vital Signs (Past 12 Hours) Vital Signs Temp Pulse Pulse Resp BP Pulse Ox O2 Del Method 11/29/22 07:24 36.8 C 90 20 129/77 95 Nasal Cannula 11/29/22 04:00 36.5 C 95 H 20 114/66 96 Nasal Cannula 11/28/22 22:00 90 11/28/22 22:57 36.5 C 94 H 16 113/75 97 Nasal Cannula O2 Flow Rate 11/29/22 07:24 1 11/29/22 04:00 2 11/28/22 22:00 11/28/22 22:57 2
[2022-11-29] MEDS: dilTIAZem HCL 30 MG TAB PO SCH ×2 (14:04→21:32)
[2022-11-29] MEDS ORDERED: traMADol HCL 50 MG TABLET PO PRN (15:34)
[2022-11-29 17:01] LABS: Partial Thromboplastin Ratio 3.3
--- NOTE | 2022-11-29 17:03 | Cardiology Consultation ---
Date of Consultation November 29, 2022 Assessment & Plan (1) Atrial fibrillation with RVR: (2) Heart failure with mid-range ejection fraction (HFmEF): (3) Hypertension: (4) CKD (chronic kidney disease), stage III: (5) Aortic stenosis: (6) Mitral regurgitation: (7) Tricuspid regurgitation: Plan ASSESSMENT/PLAN: 1. Atrial fibrillation with rapid ventricular response: Heart rate has significantly improved with diltiazem. Ideally, would prefer beta-altagracia given reduced LV systolic function. We will start metoprolol tartrate 25 mg every [address] of diltiazem. Once adequate dose of metoprolol is found, would recommend metoprolol succinate given reduced EF. Anticoagulation for stroke risk reduction. Currently on intravenous heparin. 2. Chronic heart failure with midrange EF: intermediate records indicate history of CHF. She does not appear to be significantly hypervolemic now, but was given intravenous diuretics during this hospital stay. Low-sodium diet. Strict I's and O's. 3. Cardiomyopathy: Midrange EF. Could be secondary to A-fib with RVR. Rate control important. Recommend metoprolol succinate after titration of beta- altagracia. Conservative management recommended given comorbidities including significant dementia. 4. Aortic stenosis: Nonsevere. Conservative management. 5. Moderate and tricuspid regurgitation: Nonsevere. Conservative management. 6. Hypertension: Blood pressure reasonably controlled. 7. Disposition: Cardiology will continue to follow. Please call with questions or concerns. Patient care communicated with primary hospitalist, Dr. Cortés. Thank you for allowing me to participate in the care of your patient. Please call for any other questions or concerns. Sincerely, Steve Qiu M.D. History of Present Illness Reason for Consultation: Atrial fibrillation Requesting Physician: Dr. Tran Attending Physician: Tyler Cortés MD History of Present Illness Ms. Jules is a pleasant 77-year-old female with a history significant for dementia, seizure disorder, type 2 diabetes, CLL, dyslipidemia, and heart failure with preserved EF. History was obtained by reviewing records as she is unable to provide any meaningful history given dementia. She reportedly had a fall on the day of presentation, 11/27/2022, while at her place of residence, the [facility]. Imaging demonstrated a minimally displaced fracture of the proximal fibular diaphysis. She was found to be in atrial fibrillation with rapid ventricular response on presentation with initial ECG demonstrating A-fib with RVR at [address]/T wave abnormalities. She was placed on diltiazem drip by the hospitalist service and this was converted to oral diltiazem today in the form of 30 mg p.o. every 6 hours. With diltiazem, her heart rate has significantly improved. Review of systems: Unobtainable given patient's mental status. Family history: Unobtainable. Social history: Resides at the [facility]. She was alone in her hospital room. Allergies Allergy/AdvReac Type Severity Reaction Status Date / Time spinach Allergy Unknown diarrhea Unverified 11/27/22 17:56 lactose AdvReac lactose Verified 11/27/22 17:56 intolerance Home Medications Medication Instructions Recorded Confirmed Type Markell Lidocaine Cream 4% 1 applic topical QS 11/27/22 11/27/22 History acetaminophen 325 mg tablet 650 mg PO Q6 PRN Fever Or Pain 11/27/22 11/27/22 History atorvastatin 20 mg tablet 20 mg PO DAILY 11/27/22 11/27/22 History cholecalciferol (vitamin D3) 50 100 mcg PO DAILY 11/27/22 11/27/22 History mcg (2,000 unit) tablet (Vitamin D3) citalopram 10 mg tablet 10 mg PO DAILY 11/27/22 11/27/22 History divalproex 250 mg tablet,delayed 500 mg PO BID 11/27/22 11/27/22 History release lactase 3,000 unit tablet (Lactaid) 3,000 unit PO WM 11/27/22 11/27/22 History levothyroxine 25 mcg tablet 25 mcg PO QAM 11/27/22 11/27/22 History lisinopril 5 mg tablet 5 mg PO DAILY 11/27/22 11/27/22 History oxybutynin chloride 5 mg 5 mg PO DAILY 11/27/22 11/27/22 History tablet,extended release 24 hr Patient History Medical History (Updated 11/29/22 @ 20:12 by Evans Qiu MD) Aortic stenosis Bladder spasms CHF (congestive heart failure) CKD (chronic kidney disease), stage III CLL (chronic lymphocytic leukemia) Depression Diabetes Hyperlipidemia Hypertension Hypothyroidism Mitral regurgitation No pertinent family history Seizure disorder Tricuspid regurgitation Surgical History (Updated 11/28/22 @ 01:32 by Asaf Ramirez MD) No pertinent past surgical history Social History Smoking Status: Unknown if ever smoked Hx Substance Use: No (UNKNOWN) Preferred Language: Japanese Communication Ability: Impaired Communication Ability Comment: pt has dememtia non-verbal mostly [employer] Management Required: No Beliefs That Will Affect Care: None Current Living Situation: [facility] Other Information That Helps Us Care for You: Yes Feels Safe at Home: Yes Assistive Devices: Walker and Other Assistive Devices Comment: THESE ARE UNKNOWN Physical Exam Physical Exam: Gen.: No acute distress. Awake but confused. HEENT: Anicteric sclera. Neck: No JVD. Bilateral carotid bruit versus radiation of cardiac murmur. Normal carotid upstrokes bilaterally. Cardiac: PMI was nondisplaced. No ventricular heave. Irregularly irregular. Normal S1-S2. 2/6 mid peaking systolic ejection murmur. Pulmonary: Clear to auscultation bilaterally without wheezes, rales, or rhonchi. Abdomen: Soft, nontender, nondistended, with normoactive bowel sounds. No bruits noted. Extremities: 2+ radial pulses bilaterally. 2+ posterior tibialis pulses bilaterally. Trace bilateral lower extremity edema. No cyanosis. Results & Data Vital Signs (Past 12 Hours) Vital Signs Temp Pulse Pulse Resp BP Pulse Ox O2 Del Method 11/29/22 16:01 36.9 C 85 19 120/66 94 Room Air 11/29/22 11:04 36.7 C 91 H 18 136/74 95 Nasal Cannula 11/29/22 08:00 89 11/29/22 08:00 Nasal Cannula 11/29/22 07:24 36.8 C 90 20 129/77 95 Nasal Cannula O2 Flow Rate 11/29/22 16:01 11/29/22 11:04 2 11/29/22 08:00 11/29/22 08:00 2 11/29/22 07:24 1 Intake & Output 11/27/22 11/28/22 11/29/22 11/30/22 06:59 06:59 06:59 06:59 Intake Total 1000 / 1000 1915 / 1915 1450.9 / 1450.9 Output Total 1000 / 1000 875 / 875 175 / 175 Balance 0 / 0 1040 / 1040 1275.9 / 1275.9 Weight 212 lb 8.41 oz 217 lb 13.067 oz 217 lb 13.067 oz Laboratory Results Laboratory Results - last 24 hr 11/28/22 11/28/22 11/29/22 17:55 19:47 07:01 WBC 119.27 H* RBC 3.37 L Hgb 9.3 L Hct 32.4 L MCV 96.1 MCH 27.6 MCHC 28.7 L RDW Std Deviation 64.9 H RDW Coeff of Flor 20.0 H Plt Count 61 L MPV 13.0 H Immature Gran % (Auto) 0.1 Neut % (Auto) 3.5 Lymph % (Auto) 95.2 Potter % (Auto) 1.1 Eos % (Auto) 0.1 Baso % (Auto) 0.0 Neut # (Auto) 4.05 Lymph # (Auto) 113.60 H Potter # (Auto) 1.26 H Eos # (Auto) 0.16 Baso # (Auto) 0.04 Immature Gran # (Auto) 0.16 Smudge Cells Present Ovalocytes 1+ APTT PTT Ratio Sodium Potassium Chloride Carbon Dioxide Anion Gap BUN Creatinine Est Cr Clr Drug Dosing Est GFR ( Amer) Est GFR (Non-Af Amer) BUN/Creatinine Ratio Glucose POC Glucose 112 H Calcium Phosphorus Magnesium Troponin I High Sens 23.9 H Albumin 11/29/22 11/29/22 11/29/22 07:01 07:16 15:38 WBC RBC Hgb Hct MCV MCH MCHC RDW Std Deviation RDW Coeff of Flor Plt Count MPV Immature Gran % (Auto) Neut % (Auto) Lymph % (Auto) Potter % (Auto) Eos % (Auto) Baso % (Auto) Neut # (Auto) Lymph # (Auto) Potter # (Auto) Eos # (Auto) Baso # (Auto) Immature Gran # (Auto) Smudge Cells Ovalocytes APTT Pending PTT Ratio Pending Sodium 141 Potassium 4.1 Chloride 108 H Carbon Dioxide 27 Anion Gap 6 BUN 36 H Creatinine 1.97 H Est Cr Clr Drug Dosing 28.8 Est GFR ( Amer) 27.9 Est GFR (Non-Af Amer) 24.1 BUN/Creatinine Ratio 18.3 Glucose 86 POC Glucose 80 Calcium 8.9 Phosphorus 2.9 D Magnesium 1.8 Troponin I High Sens Albumin 3.0 L 11/29/22 16:09 WBC RBC Hgb Hct MCV MCH MCHC RDW Std Deviation RDW Coeff of Flor Plt Count MPV Immature Gran % (Auto) Neut % (Auto) Lymph % (Auto) Potter % (Auto) Eos % (Auto) Baso % (Auto) Neut # (Auto) Lymph # (Auto) Potter # (Auto) Eos # (Auto) Baso # (Auto) Immature Gran # (Auto) Smudge Cells Ovalocytes APTT PTT Ratio Sodium Potassium Chloride Carbon Dioxide Anion Gap BUN Creatinine Est Cr Clr Drug Dosing Est GFR ( Amer) Est GFR (Non-Af Amer) BUN/Creatinine Ratio Glucose POC Glucose 76 Calcium Phosphorus Magnesium Troponin I High Sens Albumin Diagnostic Findings Telemetry personally reviewed: Atrial fibrillation with rapid ventricular response initially but heart rate has significantly improved and was adequately controlled more recently. Labs reviewed and notable for normal potassium, chronically abnormal renal function appearing at baseline, chronic anemia, chronic leukocytosis. Echo 11/28/2022: Normal LV size. EF 40 to 45%. Global hypokinesis. Biatrial dilation. Mild to moderate AAS with mild AI. Moderate MR. Moderate TR. Normal RVSP. Atrial fibrillation. ECGs personally reviewed: ECG 11/28/2022 at 6:21 AM: A-fib [address]/T wave abnormality ECG 11/27/2022 at 1733: A-fib RVR [address]/T wave abnormality. Chest x-ray personally reviewed from 11/27/2022: No obvious infiltrate. Left pleural effusion. Radiology reports pulmonary vascular congestion with interstitial coarsening. Trace pleural effusions. Head CT 11/27/2022: No acute intracranial abnormality per radiology. Orthopedic progress note hospitalist note reviewed. Medications Administered Current Inpatient Medications Acetaminophen (Acetaminophen 325 Mg Tab) 650 mg PO Q6 PRN PRN Reason: Fever Or Pain Stop: 12/29/22 07:03 Atorvastatin Calcium (Atorvastatin 20 Mg Tab) 20 mg PO DAILY [facility] Stop: 12/29/22 08:59 Last Admin: 11/29/22 09:11 Dose: 20 mg Bisacodyl (Bisacodyl 10 Mg Supp) 10 mg PA DAILY PRN PRN Reason: Constipation Stop: 12/27/22 22:48 Citalopram Hydrobromide (Citalopram 20 Mg Tab) 10 mg PO DAILY [facility] Stop: 12/29/22 08:59 Last Admin: 11/29/22 09:11 Dose: 10 mg Diltiazem HCl (Diltiazem Hcl 30 Mg Tab) 30 mg PO Q6H [facility] Stop: 12/29/22 12:59 Last Admin: 11/29/22 14:04 Dose: 30 mg Divalproex Sodium (Divalproex Extended Release 500 Mg Tab) 500 mg PO BID [facility] Stop: 12/27/22 22:14 Last Admin: 11/29/22 09:11 Dose: 500 mg Hydromorphone HCl (Hydromorphone Inj 0.5 Mg/0.5 Ml Syr) 0.5 mg IV Q3H PRN PRN Reason: Pain (6,7,8,9,10) Stop: 12/11/22 22:48 Hydromorphone HCl (Hydromorphone Inj 0.5 Mg/0.5 Ml Syr) 0.25 mg IV Q3H PRN PRN Reason: Pain (1,2,3,4,5) & Pre PT Stop: 12/11/22 22:48 Sodium Chloride (Nss 1000ml) 1,000 mls @ 60 mls/hr IV .[id number] [facility] Stop: 12/27/22 22:48 Last Admin: 11/29/22 09:12 Dose: 60 mls/hr Acetaminophen (Ofirmev) 1,000 mg in 100 mls @ 400 mls/hr IV Q8H PRN PRN Reason: Pain or Fever Stop: 12/01/22 14:50 Heparin Sodium/Dextrose (Heparin Sodium/Dextrose) 25,000 units in 500 mls @ 27 mls/hr IV .[id number] [facility]; Protocol Stop: 12/29/22 07:29 Last Admin: 11/29/22 09:11 Dose: 1,350 units/hr, 27 mls/hr Levothyroxine Sodium (Levothyroxine Sodium 25 Mcg Tablet) 25 mcg PO DAILYBB [facility] Stop: 12/30/22 06:29 Lisinopril (Lisinopril 5 Mg Tab) 5 mg PO DAILY [facility] Stop: 12/29/22 08:59 Last Admin: 11/29/22 09:11 Dose: 5 mg Magnesium Hydroxide (Magnesium Hydroxide Susp 30 Ml Udc) 30 ml PO DAILY PRN PRN Reason: Constipation Stop: 12/27/22 22:48 Naloxone HCl (Naloxone Hcl 0.4 Mg/1 Ml Vial/Carp) 0.1 mg IV UD PRN PRN Reason: Opiate Overdose Stop: 12/27/22 22:48 Ondansetron HCl (Ondansetron Inj 2 Mg/Ml 2 Ml Vial) 4 mg IV Q6H PRN PRN Reason: Nausea Stop: 12/27/22 22:48 Oxybutynin Chloride (Oxybutynin Chloride Xl 5 Mg Tabcr) 5 mg PO DAILY [facility] Stop: 12/29/22 08:59 Last Admin: 11/29/22 09:11 Dose: 5 mg Senna/Docusate Sodium (Docusate Sodium/Senna 50/8.6mg Tab) 2 tab PO HS [facility] Stop: 12/28/22 20:59 Last Admin: 11/28/22 20:20 Dose: 2 tab Tramadol HCl (Tramadol Hcl 50 Mg Tablet) 50 mg PO Q4H PRN PRN Reason: Pain Stop: 12/29/22 15:33 Vitamin D (Cholecalciferol 1,000 Units 25 Mcg Tab) 4,000 units PO DAILY [facility] Stop: 12/29/22 08:59 Last Admin: 11/29/22 09:11 Dose: 4,000 units PG Care Time/CCT Total # of Minutes Spent Total Time Spent with Patient: Total time spent is greater than 50% in coordination of care (as documented) at patient's floor/unit and/or counseling patient: Coding Level of Care Code 34270 INT INP/OBS CARE 2/55MIN Diagnoses Atrial fibrillation with RVR I48.91 Heart failure with mid-range ejection fraction (HFmEF) I50.22 Hypertension I10 CKD (chronic kidney disease), stage III N18.30 Aortic stenosis I35.0 Mitral regurgitation I34.0 Tricuspid regurgitation I07.1
[2022-11-29 17:21] LABS: Partial Thromboplastin Time 90.5 Seconds (21.0-31.0)
[2022-11-29] MEDS: DOCUSATE SODIUM/SENNA 50/8.6MG TAB PO SCH (21:30)
[2022-11-30] MEDS: METOPROLOL TARTRATE 25 MG TAB PO SCH ×3 (00:25→13:02)
[2022-11-30 01:15] LABS: Partial Thromboplastin Ratio > 5.1
[2022-11-30 01:39] LABS: Partial Thromboplastin Time > 139.0 Seconds (21.0-31.0)
[2022-11-30] MEDS: SODIUM CHLORIDE 0.9% 1000ML 1,000 ML IV SCH (03:39)
[2022-11-30 04:17] LABS: Albumin Level 3.1 gm/dl (3.4-5.0); BUN Creatinine Ratio 18.9 (10-20); Creatinine Clr Calc Pharmacy 29.9 ml/min; Est GFR (African American) 29.2 ml/min; Est GFR (Non-African American) 25.2 ml/min; Magnesium 1.8 mg/dl (1.7-2.4); Phosphorus 2.5 mg/dl (2.5-4.9)
[2022-11-30 04:31] LABS: Hematocrit (blood only) 32.7 % (37.0-47.0); Hemoglobin 9.4 g/dl (12.0-16.0); Mean Corpuscular Hemoglobin 27.9 pg (25.0-34.0); Mean Corpuscular Hgb Conc 28.7 g/dL (32.0-36.0); Mean Platelet Volume 13.1 fL (9.4-12.4); Platelet Count 66 K/uL (130-400); RDW Coefficient of Variation 19.8 % (11.5-14.5); RDW Standard Deviation 64.7 fL (36.4-46.3); Red Blood Count 3.37 M/uL (4.20-5.40)
[2022-11-30 04:46] LABS: Partial Thromboplastin Ratio 2.4
[2022-11-30 04:50] LABS: Partial Thromboplastin Time 65.2 Seconds (21.0-31.0)
[2022-11-30 04:56] LABS: Basophils # (auto) 0.02 K/uL (0-0.2); Eosinophils # (auto) 0.19 K/uL (0-0.50); Eosinophils % (auto) 0.1 %; Immature Granulocytes # (auto) 0.24 K/uL (0.01-0.20); Immature Granulocytes % (auto) 0.2 %; Lymphocytes % (auto) 95.1 %; Monocytes # (auto) 1.22 K/uL (0.11-0.59); Monocytes % (auto) 0.9 %; Neutrophils # (auto) 4.73 K/uL (1.40-6.50); Neutrophils % (auto) 3.7 %; Ovalocytes 1+; Smudge Cells Present
[2022-11-30] MEDS ORDERED: LEVOTHYROXINE SODIUM 25 MCG TABLET PO SCH (06:30)
[2022-11-30] MEDS: DIVALPROEX EXTENDED RELEASE 500 MG TAB PO SCH (09:44)
[2022-11-30] MEDS: CHOLECALCIFEROL 1,000 UNITS 25 MCG TAB PO SCH (09:44)
[2022-11-30] MEDS: CITALOPRAM 20 MG TAB PO SCH (09:45)
[2022-11-30] MEDS: ATORVASTATIN 20 MG TAB PO SCH (09:45)
[2022-11-30] MEDS: lisinopril 5 MG TAB PO SCH (09:46)
[2022-11-30] MEDS: HEPARIN SODIUM/DEXTROSE 25,000 UNITS/500 ML BAG IV SCH (09:46)
[2022-11-30] MEDS: OXYBUTYNIN CHLORIDE XL 5 MG TABCR PO SCH (09:46)
--- NOTE | 2022-11-30 11:40 | Cardiology Progress Note ---
Date of Service November 30, 2022 Assessment & Plan (1) Atrial fibrillation with RVR: (2) Heart failure with mid-range ejection fraction (HFmEF): (3) Hypertension: (4) CKD (chronic kidney disease), stage III: (5) Aortic stenosis: (6) Mitral regurgitation: (7) Tricuspid regurgitation: Plan ASSESSMENT/PLAN: 1. Atrial fibrillation with rapid ventricular response: Her heart rate is well controlled on metoprolol. Can transition to metoprolol succinate on discharge. Difficult situation in regards to stroke risk reduction given chronic thrombocytopenia. Anticoagulation therapy would pose elevated risk of bleeding in the setting of thrombocytopenia. If platelets improve, can consider anticoagulation therapy at that time. Would not pursue Watchman device given her significant dementia. 2. Chronic heart failure with midrange EF: prison records indicate history of CHF. She does not appear to be significantly hypervolemic now, but was given intravenous diuretics during this hospital stay. Low-sodium diet. Strict I's and O's. 3. Cardiomyopathy: Midrange EF. Could be secondary to A-fib with RVR. Rate control important. Recommend metoprolol succinate on discharge. Conservative management recommended given comorbidities including significant dementia. 4. Aortic stenosis: Nonsevere. Conservative management. 5. Moderate and tricuspid regurgitation: Nonsevere. Conservative management. 6. Hypertension: Blood pressure reasonably controlled. No other changes recommended at this time. 7. Disposition: Please call with questions or concerns. Patient care communicated with primary hospitalist, Dr. Cortés. Admission and Anticipated Discharge Date Admission Date: November 27, 2022 Subjective Patient was seen late this morning. She was sleeping and quite somnolent. Nursing staff reports that she did not want to be bothered today. She was being discharged by the hospitalist service. Physical Exam Physical Exam: Gen.: No acute distress. Awake but confused. HEENT: Anicteric sclera. Neck: No JVD. Cardiac: Irregularly irregular. Normal heart rate. Normal S1-S2. 2/6 mid peaking systolic ejection murmur. Pulmonary: Clear on anterior auscultation. Abdomen: Soft, nontender, nondistended, with normoactive bowel sounds. No bruits noted. Extremities: 2+ radial pulses bilaterally. 2+ posterior tibialis pulses bilaterally. Trace bilateral lower extremity edema. No cyanosis. Results & Data Vital Signs (Past 12 Hours) Vital Signs Temp Pulse Resp BP Pulse Ox O2 Del Method O2 Flow Rate 11/30/22 11:35 36.7 C 84 18 146/67 H 97 Nasal Cannula 1 11/30/22 11:24 36.6 C 85 20 124/82 93 11/30/22 08:11 Nasal Cannula 2 11/30/22 07:57 36.6 C 85 20 124/82 93 Nasal Cannula 1 11/30/22 04:19 36.6 C 84 17 142/92 H 94 Nasal Cannula 2 Intake & Output 11/28/22 11/29/22 11/30/22 12/01/22 06:59 06:59 06:59 06:59 Intake Total 1000 / 1000 1915 / 1915 2624.1 / 2624.1 1132.05 / 1132.05 Output Total 1000 / 1000 875 / 875 525 / 525 Balance 0 / 0 1040 / 1040 2099.1 / 2099.1 1132.05 / 1132.05 Weight 212 lb 8.41 oz 217 lb 13.067 oz 217 lb 13.067 oz 217 lb 13.067 oz Laboratory Results Laboratory Results - last 24 hr 11/29/22 11/29/22 11/29/22 15:38 16:09 20:16 WBC RBC Hgb Hct MCV MCH MCHC RDW Std Deviation RDW Coeff of Flor Plt Count MPV Immature Gran % (Auto) Neut % (Auto) Lymph % (Auto) Cotton % (Auto) Eos % (Auto) Baso % (Auto) Neut # (Auto) Lymph # (Auto) Cotton # (Auto) Eos # (Auto) Baso # (Auto) Immature Gran # (Auto) Smudge Cells Ovalocytes APTT 90.5 H* PTT Ratio 3.3 Sodium Potassium Chloride Carbon Dioxide Anion Gap BUN Creatinine Est Cr Clr Drug Dosing Est GFR ( Amer) Est GFR (Non-Af Amer) BUN/Creatinine Ratio Glucose POC Glucose 76 79 Calcium Phosphorus Magnesium Albumin 11/30/22 11/30/22 11/30/22 00:17 03:42 03:42 WBC 130.70 H* RBC 3.37 L Hgb 9.4 L Hct 32.7 L MCV 97.0 MCH 27.9 MCHC 28.7 L RDW Std Deviation 64.7 H RDW Coeff of Flor 19.8 H Plt Count 66 L MPV 13.1 H Immature Gran % (Auto) 0.2 Neut % (Auto) 3.7 Lymph % (Auto) 95.1 Cotton % (Auto) 0.9 Eos % (Auto) 0.1 Baso % (Auto) 0.0 Neut # (Auto) 4.73 Lymph # (Auto) 124.30 H Cotton # (Auto) 1.22 H Eos # (Auto) 0.19 Baso # (Auto) 0.02 Immature Gran # (Auto) 0.24 H Smudge Cells Present Ovalocytes 1+ APTT > 139.0 H* PTT Ratio > 5.1 Sodium 138 Potassium 4.0 Chloride 106 Carbon Dioxide 27 Anion Gap 5 BUN 36 H Creatinine 1.90 H Est Cr Clr Drug Dosing 29.9 Est GFR ( Amer) 29.2 Est GFR (Non-Af Amer) 25.2 BUN/Creatinine Ratio 18.9 Glucose 95 POC Glucose Calcium 9.0 Phosphorus 2.5 Magnesium 1.8 Albumin 3.1 L 11/30/22 11/30/22 11/30/22 03:42 07:11 11:15 WBC RBC Hgb Hct MCV MCH MCHC RDW Std Deviation RDW Coeff of Flor Plt Count MPV Immature Gran % (Auto) Neut % (Auto) Lymph % (Auto) Cotton % (Auto) Eos % (Auto) Baso % (Auto) Neut # (Auto) Lymph # (Auto) Cotton # (Auto) Eos # (Auto) Baso # (Auto) Immature Gran # (Auto) Smudge Cells Ovalocytes APTT 65.2 H* PTT Ratio 2.4 Sodium Potassium Chloride Carbon Dioxide Anion Gap BUN Creatinine Est Cr Clr Drug Dosing Est GFR ( Amer) Est GFR (Non-Af Amer) BUN/Creatinine Ratio Glucose POC Glucose 95 97 Calcium Phosphorus Magnesium Albumin Diagnostic Findings Labs reviewed from 11/30/2022, demonstrating abnormal but stable renal function, chronic leukocytosis, pancytopenia and anemia. Telemetry personally reviewed: She remained in atrial fibrillation but much better heart rate control, mostly in the 80s to 90s. Medications Administered Current Inpatient Medications Acetaminophen (Acetaminophen 325 Mg Tab) 650 mg PO Q6 PRN PRN Reason: Fever Or Pain Stop: 12/29/22 07:03 Atorvastatin Calcium (Atorvastatin 20 Mg Tab) 20 mg PO DAILY FOR[facility]LY [facility], [facility]1983 Stop: 12/29/22 08:59 Last Admin: 11/30/22 09:45 Dose: 20 mg Bisacodyl (Bisacodyl 10 Mg Supp) 10 mg SD DAILY PRN PRN Reason: Constipation Stop: 12/27/22 22:48 Citalopram Hydrobromide (Citalopram 20 Mg Tab) 10 mg PO DAILY [facility], [facility]1983 Stop: 12/29/22 08:59 Last Admin: 11/30/22 09:45 Dose: 10 mg Divalproex Sodium (Divalproex Extended Release 500 Mg Tab) 500 mg PO BID [facility], [facility]1983 Stop: 12/27/22 22:14 Last Admin: 11/30/22 09:44 Dose: 500 mg Hydromorphone HCl (Hydromorphone Inj 0.5 Mg/0.5 Ml Syr) 0.5 mg IV Q3H PRN PRN Reason: Pain (6,7,8,9,10) Stop: 12/11/22 22:48 Hydromorphone HCl (Hydromorphone Inj 0.5 Mg/0.5 Ml Syr) 0.25 mg IV Q3H PRN PRN Reason: Pain (1,2,3,4,5) & Pre PT Stop: 12/11/22 22:48 Acetaminophen (Ofirmev) 1,000 mg in 100 mls @ 400 mls/hr IV Q8H PRN PRN Reason: Pain or Fever Stop: 12/01/22 14:50 Levothyroxine Sodium (Levothyroxine Sodium 25 Mcg Tablet) 25 mcg PO DAILYBB [facility], [facility]1983 Stop: 12/30/22 06:29 Last Admin: 11/30/22 05:52 Dose: 25 mcg Lisinopril (Lisinopril 5 Mg Tab) 5 mg PO DAILY [facility] Stop: 12/29/22 08:59 Last Admin: 11/30/22 09:46 Dose: 5 mg Magnesium Hydroxide (Magnesium Hydroxide Susp 30 Ml Udc) 30 ml PO DAILY PRN PRN Reason: Constipation Stop: 12/27/22 22:48 Metoprolol Tartrate (Metoprolol Tartrate 25 Mg Tab) 25 mg PO Q6H [facility] Stop: 12/29/22 23:29 Last Admin: 11/30/22 05:50 Dose: 25 mg Naloxone HCl (Naloxone Hcl 0.4 Mg/1 Ml Vial/Carp) 0.1 mg IV UD PRN PRN Reason: Opiate Overdose Stop: 12/27/22 22:48 Ondansetron HCl (Ondansetron Inj 2 Mg/Ml 2 Ml Vial) 4 mg IV Q6H PRN PRN Reason: Nausea Stop: 12/27/22 22:48 Oxybutynin Chloride (Oxybutynin Chloride Xl 5 Mg Tabcr) 5 mg PO DAILY GILBERTO Stop: 12/29/22 08:59 Last Admin: 11/30/22 09:46 Dose: 5 mg Senna/Docusate Sodium (Docusate Sodium/Senna 50/8.6mg Tab) 2 tab PO HS GILBERTO Stop: 12/28/22 20:59 Last Admin: 11/29/22 21:30 Dose: 2 tab Tramadol HCl (Tramadol Hcl 50 Mg Tablet) 50 mg PO Q4H PRN PRN Reason: Pain Stop: 12/29/22 15:33 Last Admin: 11/30/22 05:49 Dose: 50 mg Vitamin D (Cholecalciferol 1,000 Units 25 Mcg Tab) 4,000 units PO DAILY GILBERTO Stop: 12/29/22 08:59 Last Admin: 11/30/22 09:44 Dose: 4,000 units PG Care Time/CCT Total # of Minutes Spent Total Time Spent with Patient: Total time spent is greater than 50% in coordination of care (as documented) at patient's floor/unit and/or counseling patient: Coding Level of Care Code 01547 SUB INP/OBS CARE 2/35MIN Diagnoses Atrial fibrillation with RVR I48.91 Heart failure with mid-range ejection fraction (HFmEF) I50.22 Hypertension I10 CKD (chronic kidney disease), stage III N18.30 Aortic stenosis I35.0 Mitral regurgitation I34.0 Tricuspid regurgitation I07.1
--- NOTE | 2022-11-30 17:09 | Discharge Summary ---
Date of Service November 30, 2022 Admission HPI Per Admitting Provider The patient is a 77-year-old female resident of [facility], who had a fall earlier in the day, and had reported left leg pain. Work-up in the emergency department included a CT scan of the cervical spine which showed no significant neck injury, but did show mild pulmonary edema and layering pleural effusion. CT scan of the head which was negative. The patient was found to be in atrial fibrillation with RVR, and was placed on diltiazem drip by the ED. Principal Diagnosis fall with contusion left fibular fracture afib with RVR, opting not to have AC at time of DC Discharge Exam Patient pleasant but confused is only oriented to person Cardiac exam is irregular but rate controlled systolic murmur is present Bruising on arms buttocks and right ankle is significant Left proximal fibula is painful Discharge Data Allergies Allergy/AdvReac Type Severity Reaction Status Date / Time spinach Allergy Unknown diarrhea Unverified 11/27/22 17:56 lactose AdvReac lactose Verified 11/27/22 17:56 intolerance Consultations 11/27/22 20:06 Consult Orthopedic Surgery Routine 11/27/22 20:07 ED Decision to Admit Stat 11/29/22 06:56 Consult Cardiology Routine 11/30/22 11:22 Consult Hematology Routine Ordered Studies 11/27/22 17:37 CT cervical spine wo con Stat CT head/brain wo con Stat Hospital Course (1) Fibula fracture: Closed left proximal fibula fracture-acute high risk now due to not operative candidate pain control with oral pain medication (2) CLL (chronic lymphocytic leukemia): Chronic unclear if stable wbc is greater than 100,000 has anemia and thrombocytopenia secondary to CLL Consider outpatient hematology visit if white blood cell count continues to rise (3) Atrial fibrillation with RVR: chronic with instability, Atrial fibrillation with RVR/hypertension, rate controlled Cardiology has started on metoprolol every 6 hours with eventual titration and change to metoprolol succinate once a day Acute diastolic heart failure associated with rapid ventricular rate has been treated with IV furosemide and now stable no additional diuretics are required echocardiogram shows systolic and diastolic heart failure Has bled score is elevated due to bruising and thrombocytopenia electing not to pursue formal anticoagulation. Platelets will typically remain borderline or low because of her hematological disease which will place her at increased risk of bleeding. This was relayed to the patient's son at time of discharge (4) Seizure disorder: chronic stable Continue divalproex 500 mg p.o. twice daily Total Time Total Time Spent Total Time Spent (In Minutes): It required greater than 30 minutes to prepare this patient for discharge Discharge Plan Discharge Items Patient Disposition: Transfer [facility] Reason For Visit: ELEVATED TROPONIN, HIP FRACTURE, ATRIAL FIB WITH R Discharge Diagnosis: atrial fibrillation, falls and bruising, high HASBLED score, not on chronic Anticoagulation at dishcarge Left fibula head fracture, non surgical management right ankle contusion gluteal fold ulceration gluteal and arm brusing Activity: Per Instructions section Activity Comment: Pt is a high fall risk Non-emergency contact: Primary Care Provider Call non-emergency contact if: your symptoms worsen Follow-up/Referrals: Marissa Chavira [Primary Care Provider] - Earl Sadler MD [Physician] - Diet: Regular Diet Texture: Easy to Chew Addtl Attending Provider Instructions: Pt has had falls and has some swallowing challenges, is no multi day dosing of metoprolol to help control Afib, if improves can consider change to long acting metoprolol succinate given fall, bruising and fracture, along with Hasbled score, 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 at discharge, if pt improves can consider anticoagulation for Afib and thromboembolic prevention please arrange follow up with orthopedics for fibulae fracture Pending Studies at Discharge: No Stand-Alone Forms: My [facility] Skilled Items Patient informed of condition?: Yes DNR: No Discharge Level of Care: Skilled Communicable Disease: No Discharge Prognosis: Stable Lines: None Urinary Catheter: No Medications and DC Order Prescriptions: New tramadol 50 mg Tablet 50 mg PO Q4H PRN (Reason: pain) Qty: 10 0RF metoprolol tartrate 25 mg Tablet 25 mg PO Q6H Qty: 120 0RF Continued atorvastatin 20 mg tablet 20 mg PO DAILY citalopram 10 mg tablet 10 mg PO DAILY levothyroxine 25 mcg tablet 25 mcg PO QAM oxybutynin chloride 5 mg tablet extended release 24hr 5 mg PO DAILY lisinopril 5 mg tablet 5 mg PO DAILY divalproex 250 mg tablet,delayed release (DR/EC) 500 mg PO BID Rx Instructions: 0800 & 1600 acetaminophen 325 mg Tablet 650 mg PO Q6 MDD 3g PRN (Reason: Fever Or Pain) Rx Instructions: use for pain scale 1-10 or temp > 101 lactase [Lactaid] 3,000 unit Tablet 3,000 unit PO WM cholecalciferol (vitamin D3) [Vitamin D3] 50 mcg (2,000 unit) Tablet 100 mcg PO DAILY Bengay Lidocaine Cream 4% 1 applic topical QS Discharge Orders: Discharge Order (Routine); Ordered 11/30/22 Ordered By: Tyler Cortés Admission Data Admit Date/Time: 11/27/22 22:01 Attending Provider: Tyler Cortés Admit Provider: Jose Alfredo Garcia Primary Care Provider: Marissa Chavira Other Providers: Earl Sadler ; Jose Alfredo Garcia ; Rico Lopez ; Song Vega Other Interventions: Discharge Summary Assessment (RN) Last Done: 11/30/22 11:24 Coding Level of Care Code 47011 INP/OBS DISCH >30 MIN Diagnoses Fibula fracture S82.409A CLL (chronic lymphocytic leukemia) C91.90 Atrial fibrillation with RVR I48.91 Seizure disorder G40.909
== END 2022-11-30 17:00 | DRG 562 ==
LOC: ED 17:19 → 2E 22:01 → SUATTDRO 22:01 → 2E 22:29 → UNDODISIN 11-30 06:08